=== PATIENT | female | born 1940 | race Caucasian/White ===

== ENCOUNTER 2024-10-01 08:27 | Inpatient (IN) ==
--- NOTE | 2024-09-28 14:17 | Anesthesiology Consultation ---
Date of Service September 28, 2024 Assessment & Plan (1) Encounter for pre-operative examination: - check CBC with diff STAT am DOS, BMP, coags, type and screen, EKG, CXR and BSG am DOS. - cardiology office note 04/18/24: "...6 month follow up...PAD on Xarelto and Plavix s/p arthrectomy and stenting right SFA...feeling well. Denies chest pain. Functional class II dyspnea, unchanged from baseline...continue current medications...carotid dopplers to assess for carotid stenosis..." - PAT placement secretary advised that Cat at Dr. Glover's office only had cardiology office note on patient and that per herself and Dr. Glover's vice president supply chain testing from [facility] would not be in time so therefore they were requesting we order testing for DOS. - Per inorganic chemist on 09/28/24 No known infectious disease contacts, current infectious disease symptoms in past 10 days or COVID positive test result in the past 30 days. Chart Review Chart Review: Acceptable Risk for Surgery (pending review of DOS testing) and Patient NOT seen in Pre Admission Testing History Surgery Operation Date: 10/01/24 09:45 Proposed Procedures p Right Groin Pseudoaneurysm Repair with Possible Interposition Graft - Everardo Glover MD Height/Weight Height: 5 ft 2 in Weight: 70.307 kg Allergies Allergy/AdvReac Type Severity Reaction Status Date / Time Penicillins Allergy Intermediate hives Verified 09/28/24 13:27 Sulfa (Sulfonamide Allergy Intermediate hives Verified 09/28/24 13:27 Antibiotics) roflumilast [From [facility]] AdvReac Mild upset Verified 09/28/24 13:28 stomach Medications Home Medications Medication Instructions Recorded Confirmed Last Taken Medical Marijuana 1 dose inhalation HS PRN Sleep 09/28/24 09/28/24 Unknown Mood Booster 200 mg PO HS 09/28/24 09/28/24 Unknown amlodipine 5 mg tablet 5 mg PO QAM 09/28/24 09/28/24 Unknown atorvastatin 40 mg tablet (Lipitor) 40 mg PO HS 09/28/24 09/28/24 Unknown calcium 600 mg (as 1 tab PO QAM 09/28/24 09/28/24 Unknown carbonate)-vitamin D3 5 mcg (200 unit) tablet clopidogrel 75 mg tablet (Plavix) 75 mg PO QAM 09/28/24 09/28/24 Unknown cyclosporine 0.05 % eye drops 1 drp ophthalmic (eye) Q12H 09/28/24 09/28/24 Unknown febuxostat 40 mg tablet (Uloric) 40 mg PO QAM 09/28/24 09/28/24 Unknown fluticasone furoate 100 1 inh inhalation DAILY 09/28/24 09/28/24 Unknown mcg/actuation blister powder for inhalation (Arnuity Ellipta) gabapentin 300 mg capsule 300 mg PO BID 09/28/24 09/28/24 Unknown hydrochlorothiazide 25 mg tablet 25 mg PO QAM 09/28/24 09/28/24 Unknown levothyroxine 50 mcg tablet 50 mcg PO QAM 09/28/24 09/28/24 Unknown (Synthroid) lisinopril 40 mg tablet 40 mg PO QAM 09/28/24 09/28/24 Unknown melatonin 5 mg tablet 5 mg PO HS 09/28/24 09/28/24 Unknown rivaroxaban 2.5 mg tablet (Xarelto) 2.5 mg PO BID 09/28/24 09/28/24 Unknown trazodone 100 mg tablet 200 mg PO HS 09/28/24 09/28/24 Unknown vibegron 75 mg tablet (Gemtesa) 75 mg PO QAM 09/28/24 09/28/24 Unknown Past Medical History Medical History Anemia Arthritis Asthma "only has daily inhaler">controlled Brain aneurysm 37 years ago>cont. to have aphasia (clamped at [facility]) Cardiac murmur Dr. Diaz cards Chronic obstructive pulmonary disease Diabetes mellitus, type 2 diet controlled (no meds "my choice") Dry eye syndrome GERD (gastroesophageal reflux disease) Hearing deficit [place] History of anxiety History of chronic lymphocytic leukemia no treatment Hx of gout Hyperlipidemia Hypertension Hypothyroidism Insomnia Medical marijuana use Mixed stress and urge urinary incontinence Panic attacks follows with pysch>every week Peripheral neuropathy PTSD (post-traumatic stress disorder) PVD (peripheral vascular disease) Past Family History Family History Other No family history of adverse response to anesthesia Past Surgical History Surgical History H/O breast biopsy benign H/O foot surgery needle removed from foot H/O vascular surgery 4 total stents/1 balloon in legs (done by Dr. Quinn Diaz). last done 08/29/24 at [facility] History of amputation right first 3 toes History of ankle surgery right/left History of appendectomy History of cataract surgery right/left History of cholecystectomy History of colonoscopy History of esophagogastroduodenoscopy (EGD) History of hysterectomy History of tonsillectomy History of tooth extraction History of total knee replacement right/left Social History Smoking Status: Former smoker Do You Dip or Chew Tobacco: No Smoking End Date: 2017 Hx Alcohol Use: No substance use type: does not use Testing Other Testing Carotid doppler 07/31/24 50-69% stenosis left ICA < 50% stenosis right ICA
--- NOTE | 2024-10-01 07:46 | History & Physical Report ---
Date of Service October 01, 2024 History of Present Illness Primary Care Provider: Berry Garcia Name: ELIGIO BASS Patient Number: [id number] : 1940 Date of Service: 09/24/2024 Chief Complaint: _New patient consultation for right groin pseudoaneurysm HPI: _Ms. Bass is an elderly female who presents to Dr. Glover's vascular clinic as a new patient regarding a right groin pseudoaneurysm. Patient states that she underwent an angiogram with intervention almost [address] Diaz[address] Postoperatively she was feeling okay, but felt that there was a lump in her right groin. She feels that this has increased in size somewhat over the past 1 to 2 weeks, and it is uncomfortable for her at the groin. She denies any significant ecchymosis or swelling of the right leg. She does admit some pretty significant low back pain in her spine which radiates to her buttocks bilaterally. She is she has had back pain like this before, and she is not sure what aggravated this. She denies headache, fever, chest pain, short of breath, bone pain, nausea, vomiting, resting, claudication, nonhealing wounds or ulcers, other complaints. She has had multiple angiogram procedures in her bilateral lower extremities in the past, but these records are not available for review today. Review of systems: A total of 14 systems were reviewed and are negative aside from what is related in her HPI Imaging: Patient did apparently have an ultrasound image performed of the right groin which indicated 3.9 cm pseudoaneurysm with a 0.9 cm neck. Unfortunately the report and the imaging are not available for review today as these were not sent to us. Emotional Assessment (PHQ-2) (Data Documented on:09/24/2024 12:44) [place] down or depressed over last 2 weeks? 0 - Not at All Little interest in doing things? 0 - Not at All PHQ-2 Score: 0 - Emotional health assessment NEGATIVE Current Home Meds: (Last Updated 09/24 12:59) amLODIPine (amLODIPine 5 mg oral tablet) 5 mg PO Daily atorvastatin (atorvastatin 40 mg oral tablet) 40 mg PO Daily clopidogrel (Plavix 75 mg oral tablet) 75 mg PO Daily cycloSPORINE ophthalmic (Restasis 0.05% ophthalmic emulsion) 1 drop both eyes q12h febuxostat (Uloric 40 mg oral tablet) 40 mg PO Daily fluticasone (Arnuity Ellipta 100 mcg inhalation powder) 1 puff inhaled Daily gabapentin (gabapentin 300 mg oral capsule) 300 mg PO bid hydroCHLOROthiazide (hydroCHLOROthiazide 25 mg oral tablet) 25 mg PO Daily levothyroxine 50 mcg PO Daily lisinopril (lisinopril 40 mg oral tablet) 40 mg PO Daily melatonin 5 mg PO qhs rivaroxaban (Xarelto 2.5 mg oral tablet) 2.5 mg PO bid traZODone (traZODone 100 mg oral tablet) 100 mg PO qhs unknown medication (L Theanine) 200 mg PO qhs vibegron (Gemtesa) 75 mg PO Daily Allergies and Sensitivities: sulfa drugs(Hives) penicillin(hives) Past Medical History: Problems: Pseudoaneurysm of femoral artery Peripheral arterial disease Hypertension Neuropathy Anxiety Hypothyroidism Hypercholesterolemia COPD Brain aneurysm CKD Surgical history: Positive for tonsillectomy, cholecystectomy, appendectomy, hysterectomy, multiple arteriography with intervention Family history: Coronary disease, hypertension, diabetes. Social history: Patient is a previous smoker, having smoked 1 pack a day and quit in 2018. She denies any alcohol or illicit drug use. OBJECTIVE Vitals: Last Updated 09/24/24 12:44 Date Temp BP Location Pulse RR SpO2 Pain 09/24/24 130/60 Right Arm 68 18 94 10 Vital Signs are the last 3 documented. No Orthostatic Data Available Height and Weight: Last Updated 09/24/24 12:44 Date BMI Wt(kg) Wt(lb) Method Ht(cm) (ft-in) Method 09/24/24 71.1 156 Standing Scale Heights and Weights are the last 3 documented. Physical Exam Constitutional: In general patient is a healthy appearing for age well-nourished well-developed elderly female in no distress. She is alert and oriented without any focal deficits. She is somewhat anxious and tearful. Her carotids do not demonstrate a bruit. Her heart is regular, lungs are clear but decreased throughout. Abdomen is soft and nontender with normoactive bowel sounds in all 4 quadrants. Brachial radial and femoral pulses are +3. Lower extremity distal pulses are +2 in the right, +1 on the left. She is surgical absence of her toes 1 through 3 on the right. Her right groin proximal to her healed puncture site it does demonstrate a palpable pulsatile mass which measures approximately 4 cm in diameter. It is mildly tender. There is no erythema, or ecchymosis present. ASSESSMENT: _ PLAN: _ 1 ) _right groin pseudoaneurysm Patient does have a right groin pseudoaneurysm measuring approximately 4 cm in diameter, with a neck measuring approximately 1 cm in diameter. Due to the size of the neck, it is unlikely that this will will resolve without surgical intervention. Dr. Glover also saw the patient today, and recommends that patient undergo open surgical repair of the right groin pseudoaneurysm with possible interposition graft if necessary. The procedure risks benefits and alternatives were discussed with the patient by myself at Dr. Glover's request. Patient expresses understanding and agreement to proceed. She is advised to call with any questions or concerns. She is agreeable this plan. Her daughter was also present today as well. Thank you for letting us participate in the care of this patient. I have personally spent_49__ minutes performing [id number] and [id number]-[id number]-face activities on this date of service.Time does not include separately reported services. Activities Include: x__ review of the medical record x__ obtaining a history _x_ physical exam/evaluation __ review labs _x_ review radiology reports _x_ counseling/educating patient/family/caregiver __ discussion/referral to other healthcare professional _x_ documenting care in the medical record __ independent interpretation of results _x_ communication of results to patient/family/caregiver _x_ coordination of care Signature Line Electronic Signature on File CC: Quinn Diaz MD [address] [facility] [address] [place] [id number] * Electronically Reviewed/Signed by: Ro Arias PA-C Author Signature Dt/Tm:09/24/2024 04:20 PM [facility] [place], [address] [place] [id number] Result Type: HVI Outpt Note Date of Service: September 24, 2024 16:05 EDT Authorization Status: Final Author or Import Date: SHERI Arias Lynn on September 24, 2024 16:20 EDT Verified By: SHERI Arias Lynn on September 24, 2024 16:20 EDT Encounter info: [id number], [id number], Clinic, 09/24/2024 - 09/24/2024 Allergies Allergy/AdvReac Type Severity Reaction Status Date / Time Penicillins Allergy Intermediate hives Verified 09/28/24 13:27 Sulfa (Sulfonamide Allergy Intermediate hives Verified 09/28/24 13:27 Antibiotics) roflumilast [From [facility]] AdvReac Mild upset Verified 09/28/24 13:28 stomach Home Medications Medication Instructions Recorded Confirmed Type Medical Marijuana 1 dose inhalation HS PRN Sleep 09/28/24 09/28/24 History Mood Booster 200 mg PO HS 09/28/24 09/28/24 History amlodipine 5 mg tablet 5 mg PO QAM 09/28/24 09/28/24 History atorvastatin 40 mg tablet (Lipitor) 40 mg PO HS 09/28/24 09/28/24 History calcium 600 mg (as 1 tab PO QAM 09/28/24 09/28/24 History carbonate)-vitamin D3 5 mcg (200 unit) tablet clopidogrel 75 mg tablet (Plavix) 75 mg PO QAM 09/28/24 09/28/24 History cyclosporine 0.05 % eye drops 1 drp ophthalmic (eye) Q12H 09/28/24 09/28/24 History febuxostat 40 mg tablet (Uloric) 40 mg PO QAM 09/28/24 09/28/24 History fluticasone furoate 100 1 inh inhalation DAILY 09/28/24 09/28/24 History mcg/actuation blister powder for inhalation (Arnuity Ellipta) gabapentin 300 mg capsule 300 mg PO BID 09/28/24 09/28/24 History hydrochlorothiazide 25 mg tablet 25 mg PO QAM 09/28/24 09/28/24 History levothyroxine 50 mcg tablet 50 mcg PO QAM 09/28/24 09/28/24 History (Synthroid) lisinopril 40 mg tablet 40 mg PO QAM 09/28/24 09/28/24 History melatonin 5 mg tablet 5 mg PO HS 09/28/24 09/28/24 History rivaroxaban 2.5 mg tablet (Xarelto) 2.5 mg PO BID 09/28/24 09/28/24 History trazodone 100 mg tablet 200 mg PO HS 09/28/24 09/28/24 History vibegron 75 mg tablet (Gemtesa) 75 mg PO QAM 09/28/24 09/28/24 History Past Med/Surg History Problem List (Updated 09/28/24 @ 14:14 by Roxann Doll PA-C) Encounter for pre-operative examination Medical History Anemia Arthritis Asthma "only has daily inhaler">controlled Brain aneurysm 37 years ago>cont. to have aphasia (clamped at [facility]) Cardiac murmur Dr. Diaz cards Chronic obstructive pulmonary disease Diabetes mellitus, type 2 diet controlled (no meds "my choice") Dry eye syndrome GERD (gastroesophageal reflux disease) Hearing deficit [place] History of anxiety History of chronic lymphocytic leukemia no treatment Hx of gout Hyperlipidemia Hypertension Hypothyroidism Insomnia Medical marijuana use Mixed stress and urge urinary incontinence Panic attacks follows with pysch>every week Peripheral neuropathy PTSD (post-traumatic stress disorder) PVD (peripheral vascular disease) Surgical History H/O breast biopsy benign H/O foot surgery needle removed from foot H/O vascular surgery 4 total stents/1 balloon in legs (done by Dr. Quinn Diaz). last done 08/29/24 at [facility] History of amputation right first 3 toes History of ankle surgery right/left History of appendectomy History of cataract surgery right/left History of cholecystectomy History of colonoscopy History of esophagogastroduodenoscopy (EGD) History of hysterectomy History of tonsillectomy History of tooth extraction History of total knee replacement right/left Family History Other No family history of adverse response to anesthesia Social History Smoking Status: Former smoker Tobacco Type: Cigarettes Smoking End Date: 2017; Second Hand Exposure: No; Do You Dip or Chew Tobacco: No; Hx Alcohol Use: No Preferred Language: Pashto 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
--- NOTE | 2024-10-01 08:58 | History & Physical Bridge Note ---
Date of Service October 01, 2024 History & Physical Bridge Note I have examined the patient, reviewed the History & Physical and in the interval since the performance of the History & Physical I have noted the following changes of clinical significance: no changes noted
--- OUTSIDE RECORDS SUMMARY | 2024-10-01 09:00 | External Medical Summary | Continuity of Care Document ---
Author Name Unknown Organization [facility] [address] [place], [place] [id number] [id number] Date(s): 09/24/24 - 09/24/24 [facility] [address], [address] [place] [phone] Encounter Diagnosis Pseudoaneurysm of femoral artery(Discharge Diagnosis) - 09/24/24 Discharge Disposition: Home or Self Care Attending Physician: MD Glover Eugene J Referring Physician: MD Emily, Quinn Dias Encounter Type: Clinic Allergies, Adverse Reactions, Alerts Substance Criticality Severity Reaction Reaction Severity Status penicillin hives Active sulfa drugs Hives Active Assessment and Plan Extracted from: Title:Clinical Document Author:SHERI Arias Lynn Date:09/24/24 [facility] OUTPATIENT NOTE Name: ELIGIO BASS Patient Number: [id number] : 1940 Date of Service: 09/24/2024 Chief Complaint: _New patient consultation for right groin pseudoaneurysm HPI: _Ms. Bass is an elderly female who presents to Dr. Glover's vascular clinic as a new patient regarding a right groin pseudoaneurysm. Patient states that she underwent an angiogram with intervention almost [address] Diaz. Postoperatively she was feeling okay, but felt that there was a lump in her right groin. She feels that this has increased in size somewhat over the past 1 to 2 weeks, and it is uncomfortable for her at the groin. She denies any significant ecchymosis or swelling of the right leg. She does admit some pretty significant low back pain in her spine which radiates to her buttocks bilaterally. She is she has had back pain like this before, and she is not sure what aggravated this. She denies headache, fever, chest pain, short of breath, bone pain, nausea, vomiting, resting, claudication, nonhealing wounds or ulcers, other complaints. She has had multiple angiogram procedures in her bilateral lower extremities in the past, but these records are not available for review today. Review of systems: A total of 14 systems were reviewed and are negative aside from what is related in her HPI Imaging: Patient did apparently have an ultrasound image performed of the right groin which indicated 3.9 cm pseudoaneurysm with a 0.9 cm neck. Unfortunately the report and the imaging are not available for review today as these were not sent to us. Emotional Assessment (PHQ-2) (Data Documented on:09/24/2024 12:44) Rickman down or depressed over last 2 weeks? 0 - Not at All Little interest in doing things? 0 - Not at All PHQ-2 Score: 0 - Emotional health assessment NEGATIVE Current Home Meds: (Last Updated 09/24 12:59) amLODIPine (amLODIPine 5 mg oral tablet) 5 mg PO Daily atorvastatin (atorvastatin 40 mg oral tablet) 40 mg PO Daily clopidogrel (Plavix 75 mg oral tablet) 75 mg PO Daily cycloSPORINE ophthalmic (Restasis 0.05% ophthalmic emulsion) 1 drop both eyes q12h febuxostat (Uloric 40 mg oral tablet) 40 mg PO Daily fluticasone (Arnuity Ellipta 100 mcg inhalation powder) 1 puff inhaled Daily gabapentin (gabapentin 300 mg oral capsule) 300 mg PO bid hydroCHLOROthiazide (hydroCHLOROthiazide 25 mg oral tablet) 25 mg PO Daily levothyroxine 50 mcg PO Daily lisinopril (lisinopril 40 mg oral tablet) 40 mg PO Daily melatonin 5 mg PO qhs rivaroxaban (Xarelto 2.5 mg oral tablet) 2.5 mg PO bid traZODone (traZODone 100 mg oral tablet) 100 mg PO qhs unknown medication (L Theanine) 200 mg PO qhs vibegron (Gemtesa) 75 mg PO Daily Allergies and Sensitivities: sulfa drugs(Hives) penicillin(hives) Past Medical History: Problems: Pseudoaneurysm of femoral artery Peripheral arterial disease Hypertension Neuropathy Anxiety Hypothyroidism Hypercholesterolemia COPD Brain aneurysm CKD Surgical history: Positive for tonsillectomy, cholecystectomy, appendectomy, hysterectomy, multiple arteriography with intervention Family history: Coronary disease, hypertension, diabetes. Social history: Patient is a previous smoker, having smoked 1 pack a day and quit in 2018. She denies any alcohol or illicit drug use. OBJECTIVE Vitals: Last Updated 09/24/24 12:44 Date Temp BP Location Pulse RR SpO2 Pain 09/24/24 130/60 Right Arm 68 18 94 10 Vital Signs are the last 3 documented. No Orthostatic Data Available Height and Weight: Last Updated 09/24/24 12:44 Date BMI Wt(kg) Wt(lb) Method Ht(cm) (ft-in) Method 09/24/24 71.1 156 Standing Scale Heights and Weights are the last 3 documented. Physical Exam Constitutional: In general patient is a healthy appearing for age well-nourished well-developed elderly female in no distress. She is alert and oriented without any focal deficits. She is somewhat anxious and tearful. Her carotids do not demonstrate a bruit. Her heart is regular, lungs are clear but decreased throughout. Abdomen is soft and nontender with normoactive bowel sounds in all 4 quadrants. Brachial radial and femoral pulses are +3. Lower extremity distal pulses are +2 in the right, +1 on the left. She is surgical absence of her toes 1 through 3 on the right. Her right groin proximal to her healed puncture site it does demonstrate a palpable pulsatile mass which measures approximately 4 cm in diameter. It is mildly tender. There is no erythema, or ecchymosis present. ASSESSMENT: _ PLAN: _ 1 ) _right groin pseudoaneurysm Patient does have a right groin pseudoaneurysm measuring approximately 4 cm in diameter, with a neck measuring approximately 1 cm in diameter. Due to the size of the neck, it is unlikely that this will will resolve without surgical intervention. Dr. Glover also saw the patient today, and recommends that patient undergo open surgical repair of the right groin pseudoaneurysm with possible interposition graft if necessary. The procedure risks benefits and alternatives were discussed with the patient by myself at Dr. Glover's request. Patient expresses understanding and agreement to proceed. She is advised to call with any questions or concerns. She is agreeable this plan. Her daughter was also present today as well. Thank you for letting us participate in the care of this patient. I have personally spent _49__ minutes performing [id number]-pc-[id number] and yiy-dath-qg-face activities on this date of service. Time does not include separately reported services. Activities Include: x__ review of the medical record x__ obtaining a history _x_ physical exam/evaluation __ review labs _x_ review radiology reports _x_ counseling/educating patient/family/caregiver __ discussion/referral to other healthcare professional _x_ documenting care in the medical record __ independent interpretation of results _x_ communication of results to patient/family/caregiver _x_ coordination of care Medications amLODIPine 5 mg oral tablet Start: 09/24/24 12:54:00 PM EDT, 1 tab, PO, Daily Start Date: 09/24/24 Status: Ordered Repeat number: 1 Arnuity Ellipta 100 mcg inhalation powder Start: 09/24/24 12:54:00 PM EDT, 1 puff, inhaled, Daily, Disp# 1 each Start Date: 09/24/24 Stop Date: 10/24/24 Status: Ordered Quantity: 1.0 Unit: each Repeat number: 1 atorvastatin 40 mg oral tablet Start: 09/24/24 12:47:00 PM EDT, 1 tab, PO, Daily Start Date: 09/24/24 Status: Ordered Repeat number: 1 gabapentin 300 mg oral capsule Start: 09/24/24 12:48:00 PM EDT, 1 cap, PO, bid Start Date: 09/24/24 Status: Ordered Repeat number: 1 Gemtesa Start: 09/24/24 12:52:00 PM EDT, 75 mg =, PO, Daily Start Date: 09/24/24 Status: Ordered Repeat number: 1 hydroCHLOROthiazide 25 mg oral tablet Start: 09/24/24 12:51:00 PM EDT, 1 tab, PO, Daily Start Date: 09/24/24 Status: Ordered Repeat number: 1 L Theanine Start: 09/24/24 12:51:00 PM EDT, L Theanine, 200 = mg, PO, qhs Start Date: 09/24/24 Status: Ordered Repeat number: 1 levothyroxine Start: 09/24/24 12:50:00 PM EDT, 50 mcg =, PO, Daily Start Date: 09/24/24 Status: Ordered Repeat number: 1 lisinopril 40 mg oral tablet Start: 09/24/24 12:47:00 PM EDT, 1 tab, PO, Daily Start Date: 09/24/24 Status: Ordered Repeat number: 1 melatonin Start: 09/24/24 12:52:00 PM EDT, 5 mg =, PO, qhs Start Date: 09/24/24 Status: Ordered Repeat number: 1 Plavix 75 mg oral tablet Start: 09/24/24 12:50:00 PM EDT, 1 tab, PO, Daily Start Date: 09/24/24 Status: Ordered Repeat number: 1 Restasis 0.05% ophthalmic emulsion Start: 09/24/24 12:52:00 PM EDT, 1 drop, both eyes, q12h Start Date: 09/24/24 Status: Ordered Repeat number: 1 traZODone 100 mg oral tablet Start: 09/24/24 12:54:00 PM EDT, 1 tab, PO, qhs Start Date: 09/24/24 Status: Ordered Repeat number: 1 Uloric 40 mg oral tablet Start: 09/24/24 12:48:00 PM EDT, 1 tab, PO, Daily Start Date: 09/24/24 Status: Ordered Repeat number: 1 Xarelto 2.5 mg oral tablet Start: 09/24/24 12:50:00 PM EDT, 1 tab, PO, bid Start Date: 09/24/24 Status: Ordered Repeat number: 1 Mental Status 09/24/24 Barriers to Learning one year None evide nt Mandatory Health Literacy Documentation Yes Health Literacy Communication Barriers N ever Primary Language Dominican Problem List Condition Confirmation Course Effective Dates Status H ealth Status Informant Pseudoaneurysm of femoral artery Confirmed Active Diagnosis Diagnosis Type Effective Dates Health Status Clinical Service Informant Pseudoaneurysm of femoral artery Discharge Diagnosis 09/24/24 Vital Signs Most recent to oldest [Reference Range]: 1 Patient Weight 71.1 kg (09/24/24 12:44 PM) Heart Rate 68 bpm (09/24/24 12:44 PM) Respiratory Rate 18 br/min (09/24/24 12:44 PM) Blood Pressure 130/60mmHg (09/24/24 12:44 PM) Cuff Pulse Pressure 70 mmHg (09/24/24 12:44 PM) BP Location # 1 Right Arm (09/24/24 12:44 PM) Social History Social History Type Response Smoking Status Former Smoker, quit > 1 yr Sex Sex Representation Female (finding) [facility] Outpt Note * SHERI Arias Lynn: PERFORM Event Display: [facility] Outpt Note Authored Date: [id number] [facility] OUTPATIENT NOTE Name: ELIGIO BASS Patient Number: [id number] : 1940 Date of Service: 09/24/2024 Chief Complaint: _New patient consultation for right groin pseudoaneurysm HPI: _Ms. Bass is an elderly female who presents to Dr. Glover's vascular clinic as a new patient regarding a right groin pseudoaneurysm. Patient states that she underwent an angiogram with intervention almost [address] Diaz. Postoperatively she was feeling okay, but felt that therewas a lump in her right groin. She feels that this has increased in size somewhat over the past 1 to 2 weeks, and it is uncomfortable for her at the groin. She denies any significant ecchymosis or swelling of the right leg. She does admit some pretty significant low back pain in her spine which radiates to her buttocks bilaterally. She is she has had back pain like this before, and she is not sure what aggravated this. She denies headache, fever, chest pain, short of breath, bone pain, nausea, vomiting, resting, claudication, nonhealing wounds or ulcers, other complaints. She has had multiple angiogram procedures in her bilateral lower extremities in the past, but theserecords are not available for review today. Review of systems: A total of 14 systems were reviewed and are negative aside from what is related in her HPI Imaging: Patient did apparently have an ultrasound image performed of the right groin which indicated 3.9 cm pseudoaneurysm with a 0.9 cm neck. Unfortunately the report and the imaging are not available for review today as these were not sent to us. Emotional Assessment (PHQ-2) (Data Documented on:09/24/2024 12:44) Rickman down or depressed over last 2 weeks? 0 - Not at All Little interest in doing things? 0 - Not at All PHQ-2 Score: 0 - Emotional health assessment NEGATIVE Current Home Meds: (Last Updated 09/24 12:59) amLODIPine (amLODIPine 5 mg oral tablet) 5 mg PO Daily atorvastatin (atorvastatin 40 mg oral tablet) 40 mg PO Daily clopidogrel (Plavix 75 mg oral tablet) 75 mg PO Daily cycloSPORINE ophthalmic (Restasis 0.05% ophthalmic emulsion) 1 drop both eyes q12h febuxostat (Uloric 40 mg oral tablet) 40 mg PO Daily fluticasone (Arnuity Ellipta 100 mcg inhalation powder) 1 puff inhaled Daily gabapentin (gabapentin 300 mg oral capsule) 300 mg PO bid hydroCHLOROthiazide (hydroCHLOROthiazide 25 mg oral tablet) 25 mg PO Daily levothyroxine 50 mcg PO Daily lisinopril (lisinopril 40 mg oral tablet) 40 mg PO Daily melatonin 5 mg PO qhs rivaroxaban (Xarelto 2.5 mg oral tablet) 2.5 mg PO bid traZODone (traZODone 100 mg oral tablet) 100 mg PO qhs unknown medication (L Theanine) 200 mg PO qhs vibegron (Gemtesa) 75 mg PO Daily Allergies and Sensitivities: sulfa drugs(Hives) penicillin(hives) Past Medical History: Problems: Pseudoaneurysm of femoral artery Peripheral arterial disease Hypertension Neuropathy Anxiety Hypothyroidism Hypercholesterolemia COPD Brain aneurysm CKD Surgical history: Positive for tonsillectomy, cholecystectomy, appendectomy, hysterectomy, multiplearteriography with intervention Family history: Coronary disease, hypertension, diabetes. Social history: Patient is a previous smoker, having smoked 1 pack a day and quit in 2018. She denies any alcohol or illicit drug use. OBJECTIVE Vitals: Last Updated 09/24/24 12:44 Date Temp BP Location Pulse RR SpO2 Pain 09/24/24 130/60 Right Arm 68 18 94 10 Vital Signs are the last 3 documented. No Orthostatic Data Available Height and Weight: Last Updated 09/24/24 12:44 Date BMI Wt(kg) Wt(lb) Method Ht(cm) (ft-in) Method 09/24/24 71.1 156 Standing Scale Heights and Weights are the last 3 documented. Physical Exam Constitutional: In general patient is a healthy appearing for age well-nourished well-developed elderly female in no distress. She is alert and oriented without any focal deficits. She is somewhat anxious and tearful. Her carotids do not demonstrate a bruit. Her heart is regular, lungs are clear but decreased throughout. Abdomen is soft and nontender with normoactive bowel sounds in all 4 quadrants. Brachial radial and femoral pulses are +3. Lower extremity distal pulses are +2 in the right, +1on the left. She is surgical absence of her toes 1 through 3 on the right. Her right groin proximalto her healed puncture site it does demonstrate a palpable pulsatile mass which measures approximately 4 cm in diameter. It is mildly tender. There is no erythema, or ecchymosis present. ASSESSMENT: _ PLAN: _ 1 ) _right groin pseudoaneurysm Patient does have a right groin pseudoaneurysm measuring approximately 4 cm in diameter, with a neck measuring approximately 1 cm in diameter. Due to the size of the neck, it is unlikely that this will will resolve without surgical intervention. Dr. Glover also saw the patient today, and recommendsthat patient undergo open surgical repair of the right groin pseudoaneurysm with possible interposition graft if necessary. The procedure risks benefits and alternatives were discussed with the patient by myself at Dr. Glover's request. Patient expresses understanding and agreement to proceed. She is advised to call with any questions or concerns. She is agreeable this plan. Her daughter was also present today as well. Thank you for letting us participate in the care of this patient. I have personally spent _49__ minutes performing [id number]-yyok and mnn-sigz-zh-face activities on this date of service. Time does not include separately reported services. Activities Include: x__ review of the medical record x__ obtaining a history _x_ physical exam/evaluation __ review labs _x_ review radiology reports _x_ counseling/educating patient/family/caregiver __ discussion/referral to other healthcare professional _x_ documenting care in the medical record __ independent interpretation of results _x_ communication of results to patient/family/caregiver _x_ coordination of care Electronic Signature on File CC: Quinn Diaz MD [id number] [address] * Electronically Reviewed/Signed by: Ro Arias PA-C Author Signature Dt/Tm:09/24/2024 04:20 PM [facility] [place] [address] [facility] [address] [place] 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
[2024-10-01 09:01] LABS: Basophils # (auto) 0.07 K/uL (0.00-0.20); Basophils % (auto) 0.7 %; Eosinophils # (auto) 0.26 K/uL (0.00-0.50); Eosinophils % (auto) 2.6 %; Hemoglobin 10.3 g/dl (12.0-16.0); Immature Granulocytes # (auto) 0.03 K/uL (0.01-0.20); Immature Granulocytes % (auto) 0.3 %; Lymphocytes % (auto) 49.3 %; Mean Corpuscular Hgb Conc 31.2 g/dL (32.0-36.0); Mean Corpuscular Volume 89.7 fL (80.0-100.0); Mean Platelet Volume 10.4 fL (9.4-12.4); Monocytes # (auto) 0.57 K/uL (0.11-0.59); Monocytes % (auto) 5.7 %; Neutrophils % (auto) 41.4 %; Platelet Count 323 K/uL (130-400); RDW Coefficient of Variation 14.6 % (11.5-14.5); RDW Standard Deviation 47.9 fL (36.4-46.3); Red Blood Count 3.68 M/uL (4.20-5.40); White Blood Count 9.93 K/ul (4.8-10.8)
[2024-10-01 09:14] LABS: BUN Creatinine Ratio 17.7 (10-20); Calcium 9.7 mg/dl (8.6-10.3); Creatinine Clr Calc Pharmacy 27.3 ml/min; Potassium 4.4 mmol/L (3.5-5.1)
--- NOTE | 2024-10-01 09:18 | XRay Report ---
XR chest 2V PA/lateral CLINICAL HISTORY: preop COMPARISON STUDY: None FINDINGS: There is mild cardiomegaly without pulmonary vascular congestion. No effusion or consolidat ion. IMPRESSION: No acute findings. ACT 112: Negative or not required by law. Electronically signed by: Kwesi Forman M.D. 10/01/2024 9:17 AM
[2024-10-01 09:28] LABS: Partial Thromboplastin Ratio 0.9; Partial Thromboplastin Time 25 Seconds (21-31); Prothrombin Time 10.4 Seconds (9.0-12.0)
[2024-10-01] MEDS: SODIUM CHLORIDE 0.9% 1,000 ML IV SCH (09:39)
[2024-10-01] MEDS ORDERED: ePHEDrine sulfate 50 MG/ML AMP IV PRN (09:45)
[2024-10-01] MEDS ORDERED: ONDANSETRON INJ 2 MG/ML 2 ML VIAL IV PRN ×2 (09:45→12:21)
[2024-10-01] MEDS ORDERED: ATROPINE SULFATE 0.1 MG/ML 10ML SYR IV PRN (09:45)
[2024-10-01] MEDS ORDERED: LIDOCAINE 2% 2 ML VIAL/AMP(20MG/ML) INFIL ONE (10:25)
[2024-10-01] MEDS ORDERED: fentaNYL citrate PF 100 MCG/2 ML VIAL ONE ×2 (10:25→11:30)
[2024-10-01] MEDS ORDERED: PROPOFOL IV EMULSION 10 MG/ML 20 ML VIAL IV ONE (10:25)
[2024-10-01] MEDS ORDERED: ROCURONIUM BROMIDE 10 MG/ML 5 ML VIAL IV ONE (10:25)
[2024-10-01] MEDS ORDERED: ONDANSETRON INJ 2 MG/ML 2 ML VIAL ONE (10:25)
[2024-10-01] MEDS ORDERED: DEXAMETHASONE SOD INJ 4 MG/ML VIAL ONE (10:29)
[2024-10-01] MEDS: CLINDAMYCIN/D5W 900 MG/50 ML BAG IV SCH (10:40)
[2024-10-01] MEDS ORDERED: SUGAMMADEX SODIUM 200 MG/2 ML VIAL IV ONE (11:10)
[2024-10-01] MEDS ORDERED: ePHEDrine sulfate 50 MG/5 ML SYR ONE (11:11)
[2024-10-01] MEDS ORDERED: PHENYLEPHRINE HCL 10 MG/ML VIAL ONE (11:11)
[2024-10-01] MEDS ORDERED: VASOPRESSIN 20 UNIT/ML VIAL ONE (11:14)
--- NOTE | 2024-10-01 11:17 | Electrocardiogram Report ---
Test Reason : Blood Pressure : */* mmHG Vent. Rate : 63 BPM Atrial Rate : 63 BPM P-R Int : 164 ms QRS Dur : 68 ms QT Int : 408 ms P-R-T Axes : 98 -10 38 degrees QTcB Int : 417 ms Sinus rhythm with Premature atrial complexes Otherwise normal ECG No previous ECGs available Confirmed by Cain Deras ([id number]) on 10/01/2024 11:16:33 AM Referred By: Everardo Glover Confirmed By: Cain Deras
[2024-10-01] MEDS: ceFAZolin 330 MG/ML 1 GM VIAL ONE (11:25)
[2024-10-01] MEDS: GELATIN SPONGE SZ 100 ONE (12:16)
[2024-10-01] MEDS: HEPARIN (PORCINE) 1000 UNIT/ML 10 ML (CATH LAB USE ONLY) ONE (12:17)
[2024-10-01] MEDS: THROMBIN FOR SOLN 20000 UNIT KIT ONE (12:26)
--- NOTE | 2024-10-01 12:33 | Post Operative Brief Note ---
Immediate Post Op Note Date of Surgery October 01, 2024 Pre & Post Diagnosis Operation Date: 10/01/24 09:45 Pre-Op Diagnosis: Right Groin Pseudoaneurysm Post-Op Diagnosis: Right Groin Pseudoaneurysm I identified the patient and participated in the time-out.: Yes Procedure Operation Date: 10/01/24 09:45 Actual Procedures p Right Groin Pseudoaneurysm Repair with Possible Interposition Graft(Right) - Everardo Glover MD Surgeon Everardo Glover MD Conference Planning Manager MD Lola RoperMinarchdeysi,PAC Estimated Blood Loss 50 Findings Consistent with Post-Op Diagnosis Drains Caba Catheter Anesthesia Type General Complications none Disposition Accompanied Patient To Recovery: No Disposition: Recovery Room
--- NOTE | 2024-10-01 13:20 | Operative Report ---
Post Operative Report Pre & Post Diagnosis Operation Date: 10/01/24 09:45 Pre-Op Diagnosis: Right Groin Pseudoaneurysm Post-Op Diagnosis: Right Groin Pseudoaneurysm I identified the patient and participated in the time-out.: Yes Procedure Operation Date: 10/01/24 09:45 Actual Procedures p Right Groin Pseudoaneurysm Repair (Right) - Everardo Glover MD Surgeon Everardo Glover MD Fiberglass Roving Winder MD Ari Roper,PAC Estimated Blood Loss 50 Findings Consistent with Post-Op Diagnosis Thrombosed pseudoaneurysm arising from R DIRECTOR PRIVATE with defect in anterior wall of DIRECTOR PRIVATE. DIRECTOR PRIVATE patent followign primary arterial repair Specimens None Anesthesia Type General Complications None Disposition Accompanied Patient To Recovery: No Indications This is an 84 year old female s/p cardiac catheterization with right DIRECTOR PRIVATE access who developed a large pseudoaneurysm following the procedure. On initial evaluation in clinic she was found to have a pulsatile mass in her right groin consistent with the pseudoaneurysm with a 0.8cm neck. The appearance of the pseudoaneurysm and large size was not amenable to conservative management. After discussion of the procedure, risks and benefits, patient elected to repair with repair of her right femoral artery pseudoaneurysm. Description of Procedure The patient was taken to the operating room and placed in the supine position. General endotracheal anesthesia was induced. The right groin and right leg were prepped and draped circumferentially in the usual sterile fashion. A longitudinal incision was made over the right DIRECTOR PRIVATE and pseudoaneurysm using a #15 blade scalpel. Dissection was carried down through subcutaneous tissue using electrocautery followed by Metzenbaum scissions. The inguinal ligament was identified and the DIRECTOR PRIVATE proximal to the pseudoaneurysm below. Proximal control was obtained. The pseudoaneurysm capsule was then partially dissected anteriorly and on both sides laterally. Control of the distal femoral/SFA below the pseudoaneurysm was then obtained. 6000U IV heparin was given. The Proximal DIRECTOR PRIVATE was clamped. The pseudoaneurysm capsule was then dissected and the pseudoaneurys m resected using a combination of electrocute, Metzenbaum scissors, and blunt dissection. The pseudoaneurysm appeared to be mostly thrombosed. There was no initial bleeding from the anterior wall of the DIRECTOR PRIVATE following removal. Our proximal DIRECTOR PRIVATE clamp was then removed. A small defect in the anterior wall of the DIRECTOR PRIVATE was noted. This was repaired primarily with a 5-0 Prolene. No further bleeding was identified. There was a pulse in the DIRECTOR PRIVATE proximal and distal to repair. Hemostasis was obtained. The wound was closed with running 2-0 Vicryl sutures followed by 3-0 running subcutaneous Vicryl sutures. The skin was closed with migel. Dr. Glover was present and scrubbed for the entire procedure. Ro Arias Pac assisted due to lack of resident availability and was necessary for positioning, draping, retraction, wound closure deep layers, subcutaneous tissue, and skin closure and was necessary for assisting with the case. I attest to the content of the Intraoperative Record and any orders documented therein. Any exceptions are noted below. Supervising Physician Co-Signing Physician Notes Everardo Glover MD
--- NOTE | 2024-10-01 13:22 | Anesthesiology Progress Note ---
Date of Service October 01, 2024 Anesthesia Post Procedure Vital Signs Vital Signs: Temp Pulse Resp BP Pulse Ox O2 Del Method 10/01/24 08:53 36.5 C 68 18 131/55 L 95 Room Air Pain Intensity Lower Back: Pain Intensity: 10 Transfer of Care Handoff Completed per policy Notes Mental Status: alert / awake / arousable and participated in evaluation Patient Amnestic to Procedure: Yes Nausea / Vomiting: adequately controlled Pain: adequately controlled Airway Patency, RR, SpO2: stable & adequate BP & HR: stable & adequate Hydration State: stable & adequate Anesthetic Complications: no major complications apparent and Pt Satisfied with anesthetic care
[2024-10-01] MEDS: fentaNYL citrate PF 100 MCG/2 ML VIAL IV PRN (13:24)
[2024-10-01] MEDS: HYDROmorphone INJ 1 MG/ML SYRINGE IV PRN (13:56)
[2024-10-01] MEDS: LACTATED RINGER'S 1,000 ML IV SCH (15:07)
[2024-10-01] MEDS: MoRPHine SULFATE 4 MG/ML 1 ML CARP\\VIAL IV PRN (15:40)
--- NOTE | 2024-10-01 15:48 | Critical Care Consultation ---
Date of Consultation October 01, 2024 Assessment & Plan (1) Pseudoaneurysm of femoral artery following procedure: Reason Critically Ill: Status post right femoral pseudoaneurysm repair PLAN: Neuro: Analgesia per vascular surgery Resp: Tolerating room air CV: Hypertension -Continue home meds GI/Nutrition: Regular diet Heme: Anemia NOS DVT prophylaxis: Patient ambulatory Endocrine: ICU hyperglycemia protocol Vascular access: Peripheral IVs Code Status: Full code Disposition: Critical care will sign off at this time (2) Hyperlipidemia: (3) Hypertension: (4) Hypothyroidism: History of Present Illness Reason for Consultation: Repair of right groin pseudoaneurysm, postop day 0 Attending Physician: Everardo Glover MD History of Present Illness Patient is an 83-year-old female who underwent repair of a right groin pseudoaneurysm after a angiogram approximately 6 weeks ago. Successful repair was completed in the operating room and the patient is mated to the ICU without any complaint at this time. Allergies Allergy/AdvReac Type Severity Reaction Status Date / Time Penicillins Allergy Intermediate hives Verified 10/01/24 08:54 Sulfa (Sulfonamide Allergy Intermediate hives Verified 10/01/24 08:54 Antibiotics) roflumilast [From Daliresp] AdvReac Mild upset Verified 10/01/24 08:54 stomach Home Medications Medication Instructions Recorded Confirmed Type Medical Marijuana 1 dose inhalation HS PRN Sleep 09/28/24 10/01/24 History Mood Booster 200 mg PO HS 09/28/24 10/01/24 History amlodipine 5 mg tablet 5 mg PO QAM 09/28/24 10/01/24 History atorvastatin 40 mg tablet (Lipitor) 40 mg PO HS 09/28/24 10/01/24 History calcium 600 mg (as 1 tab PO QAM 09/28/24 10/01/24 History carbonate)-vitamin D3 5 mcg (200 unit) tablet clopidogrel 75 mg tablet (Plavix) 75 mg PO QAM 09/28/24 10/01/24 History cyclosporine 0.05 % eye drops 1 drp ophthalmic (eye) Q12H 09/28/24 10/01/24 History febuxostat 40 mg tablet (Uloric) 40 mg PO QAM 09/28/24 10/01/24 History fluticasone furoate 100 1 inh inhalation DAILY 09/28/24 10/01/24 History mcg/actuation blister powder for inhalation (Arnuity Ellipta) gabapentin 300 mg capsule 300 mg PO BID 09/28/24 10/01/24 History hydrochlorothiazide 25 mg tablet 25 mg PO QAM 09/28/24 10/01/24 History levothyroxine 50 mcg tablet 50 mcg PO QAM 09/28/24 10/01/24 History (Synthroid) lisinopril 40 mg tablet 40 mg PO QAM 09/28/24 10/01/24 History melatonin 5 mg tablet 5 mg PO HS 09/28/24 10/01/24 History rivaroxaban 2.5 mg tablet (Xarelto) 2.5 mg PO BID 09/28/24 10/01/24 History trazodone 100 mg tablet 200 mg PO HS 09/28/24 10/01/24 History vibegron 75 mg tablet (Gemtesa) 75 mg PO QAM 09/28/24 10/01/24 History Patient History Medical History Anemia Arthritis Asthma "only has daily inhaler">controlled Brain aneurysm 37 years ago>cont. to have aphasia (clamped at [facility]) Cardiac murmur Dr. Diaz cards Chronic obstructive pulmonary disease Diabetes mellitus, type 2 diet controlled (no meds "my choice") Dry eye syndrome GERD (gastroesophageal reflux disease) Hearing deficit [place] History of anxiety History of chronic lymphocytic leukemia no treatment Hx of gout Hyperlipidemia Hypertension Hypothyroidism Insomnia Medical marijuana use Mixed stress and urge urinary incontinence Panic attacks follows with pysch>every week Peripheral neuropathy PTSD (post-traumatic stress disorder) PVD (peripheral vascular disease) Surgical History H/O breast biopsy benign H/O foot surgery needle removed from foot H/O vascular surgery 4 total stents/1 balloon in legs (done by Dr. Quinn Diaz). last done 08/29/24 at [facility] History of amputation right first 3 toes History of ankle surgery right/left History of appendectomy History of cataract surgery right/left History of cholecystectomy History of colonoscopy History of esophagogastroduodenoscopy (EGD) History of hysterectomy History of tonsillectomy History of tooth extraction History of total knee replacement right/left Family History Other No family history of adverse response to anesthesia Social History Smoking Status: Former smoker Tobacco Type: Cigarettes Smoking End Date: 2017; Second Hand Exposure: No; Do You Dip or Chew Tobacco: No; Hx Alcohol Use: No Preferred Language: [place] [employer] Required: No Beliefs That Will Affect Care: None Current Living Situation: Alone Feels Safe at Home: Yes Safety Concerns: Feels Safe At This Time Assistive Devices: Glasses, Hearing Aid - Bilateral and Walker Assistive Devices Comment: upper partial Physical Exam Physical Exam: General: Alert. nontoxic. Skin: Warm, dry, Head: Atraumatic Ears, nose, mouth and throat: airway patent Cardiovascular: Normal peripheral perfusion Respiratory: no respiratory distress Gastrointestinal: Non distended Musculoskeletal: No deformity, wound VAC in place in right groin Results & Data Results & Data Vital Signs (Past 12 Hours) Vital Signs Temp Pulse Pulse Resp BP BP Pulse Ox 10/01/24 15:06 81 17 97 10/01/24 15:00 10/01/24 15:00 10/01/24 14:50 36.8 C 86 18 105/63 96 10/01/24 14:25 36.5 C 87 15 119/58 L 94 10/01/24 14:15 83 12 121/55 L 96 10/01/24 14:05 88 22 144/89 H 98 10/01/24 13:55 87 13 133/62 95 10/01/24 13:45 88 17 104/52 L 95 10/01/24 13:35 93 H 18 127/62 96 10/01/24 13:25 85 22 123/55 L 97 10/01/24 13:17 36.4 C L 89 16 125/55 L 97 10/01/24 08:53 36.5 C 68 18 131/55 L 95 Pulse Ox O2 Del Method O2 Del Method O2 Flow Rate O2 Flow Rate 10/01/24 15:06 10/01/24 15:00 Nasal Cannula 2 10/01/24 15:00 97 Nasal Cannula 2 10/01/24 14:50 Nasal Cannula 2 10/01/24 14:25 Nasal Cannula 4 10/01/24 14:15 Nasal Cannula 4 10/01/24 14:05 Nasal Cannula 4 10/01/24 13:55 Nasal Cannula 4 10/01/24 13:45 Nasal Cannula 4 10/01/24 13:35 Nasal Cannula 4 10/01/24 13:25 Oxymask 9 10/01/24 13:17 Oxymask 9 10/01/24 08:53 Room Air Critical Care Results & Data Vital Signs (Past 12 Hours) Vital Signs Temp Pulse Pulse Resp BP BP Pulse Ox 10/01/24 15:06 81 17 97 10/01/24 15:00 10/01/24 15:00 10/01/24 14:50 36.8 C 86 18 105/63 96 10/01/24 14: 36.5 C 87 15 119/58 L 94 10/01/24 14:15 83 12 121/55 L 96 10/01/24 14:05 88 22 144/89 H 98 10/01/24 13:55 87 13 133/62 95 10/01/24 13:45 88 17 104/52 L 95 10/01/24 13:35 93 H 18 127/62 96 10/01/24 13:25 85 22 123/55 L 97 10/01/24 13:17 36.4 C L 89 16 125/55 L 97 10/01/24 08:53 36.5 C 68 18 131/55 L 95 Pulse Ox O2 Del Method O2 Del Method O2 Flow Rate O2 Flow Rate 10/01/24 15:06 10/01/24 15:00 Nasal Cannula 2 10/01/24 15:00 97 Nasal Cannula 2 10/01/24 14:50 Nasal Cannula 2 10/01/24 14:25 Nasal Cannula 4 10/01/24 14:15 Nasal Cannula 4 10/01/24 14:05 Nasal Cannula 4 10/01/24 13:55 Nasal Cannula 4 10/01/24 13:45 Nasal Cannula 4 10/01/24 13:35 Nasal Cannula 4 10/01/24 13:25 Oxymask 9 10/01/24 13:17 Oxymask 9 10/01/24 08:53 Room Air Lab & Micro Results (Past 24 Hours) RBC 3.68 M/uL (4.20-5.40) L 10/01/24 WBC 9.93 K/ul (4.8-10.8) 10/01/24 Hgb 10.3 g/dl (12.0-16.0) L 10/01/24 Hct 33.0 % (37.0-47.0) L 10/01/24 MCV 89.7 fL (80.0-100.0) 10/01/24 MCH 28.0 pg (25.0-34.0) 10/01/24 MCHC 31.2 g/dL (32.0-36.0) L 10/01/24 RDW Standard Deviation 47.9 fL (36.4-46.3) H 10/01/24 RDW Coefficient of Variation 14.6 % (11.5-14.5) H 10/01/24 Plt Count 323 K/uL (130-400) 10/01/24 MPV 10.4 fL (9.4-12.4) 10/01/24 Neutrophils (%) (Auto) 41.4 % 10/01/24 Lymphocytes (%) (Auto) 49.3 % 10/01/24 Monocytes # (Auto) 0.57 K/uL (0.11-0.59) 10/01/24 Eosinophils # (Auto) 0.26 K/uL (0.00-0.50) 10/01/24 Immature Granulocyte % (Auto) 0.3 % 10/01/24 Neutrophils # (Auto) 4.10 K/uL (1.40-6.50) 10/01/24 Lymphocytes # (Auto) 4.90 K/uL (1.20-3.40) H 10/01/24 Monocytes # (Auto) 0.57 K/uL (0.11-0.59) 10/01/24 Eosinophils # (Auto) 0.26 K/uL (0.00-0.50) 10/01/24 Basophils # (Auto) 0.07 K/uL (0.00-0.20) 10/01/24 Immature Granulocyte # (Auto) 0.03 K/uL (0.01-0.20) 5 Na 138 mmol/L (136-145) 10/01/24 K 4.4 mmol/L (3.5-5.1) 10/01/24 Cl 108 mmol/L (98-107) H 10/01/24 CO2 24 mmol/L (21-32) 10/01/24 Anion Gap 6 (3-11) 10/01/24 BUN 25 mg/dl (6-23) H 10/01/24 Creatinine 1.41 mg/dl (0.6-1.2) H 10/01/24 BUN/Creatinine Ratio 17.7 (10-20) 10/01/24 Glu 111 mg/dl (70-99(Fasting)) H 10/01/24 Ca 9.7 mg/dl (8.6-10.3) 10/01/24 Calcium Level 9.7 mg/dl (8.6-10.3) 10/01/24 08:39 Prothromb Time International Ratio 1.0 (0.9-1.1) 10/01/24 08:3 9 Diagnostic Findings (Past 24 Hours) Chest X-Ray 10/01/24 05:00 XR chest 2V PA/lateral CLINICAL HISTORY: preop COMPARISON STUDY: None FINDINGS: There is mild cardiomegaly without pulmonary vascular congestion. No effusion or consolidation. IMPRESSION: No acute findings. ACT 112: Negative or not required by law. Electronically signed by: Kwesi Forman M.D. 10/01/2024 9:17 AM I & O Totals 24 Hours 09/30/24 10/01/24 10/02/24 06:59 06:59 06:59 Intake Total 1650 / 1650 Output Total 550 / 550 Balance 1100 / 1100 Cumulative 09/27/24 15:16 thru 10/01/24 15:08 Intake Total 1650 Output Total 550 Balance 1100 RT Ventilator Mngmt (Last Documented) Ventilator Ordered Settings Respiratory Rate 17 10/01/24 15:06 Ventilator - PT Measurements Respiratory Rate 17 Coding Level of Care Code 01223 IN/OBS CONSULT LVL 2,35M Diagnoses Pseudoaneurysm of femoral artery following procedure T81.718A; I72.4 Hyperlipidemia E78.5 Hypertension I10 Hypothyroidism E03.9
[2024-10-01] MEDS: CLINDAMYCIN/D5W 600 MG/50 ML BAG IV SCH (16:46)
[2024-10-01] MEDS: traZODone HCL 100 MG TAB PO SCH (20:14)
[2024-10-01] MEDS: GABAPENTIN 300 MG CAP PO SCH (20:14)
[2024-10-01] MEDS: ARTIFICIAL TEARS OP SCH (20:16)
[2024-10-01] MEDS: MELATONIN 3 MG TAB PO SCH (20:16)
[2024-10-01] MEDS: ATORVASTATIN 40 MG TAB PO SCH (20:16)
[2024-10-01] MEDS ORDERED: DEXTROSE 50% 50 ML SYRINGE IV PRN (20:27)
[2024-10-01] MEDS ORDERED: CARBOHYDRATES FOR HYPOGLYCEMIA PO PRN (20:27)
[2024-10-01] MEDS ORDERED: GLUCOSE 40% GEL 15 GM TUBE PO PRN (20:27)
[2024-10-01] MEDS ORDERED: GLUCAGON FOR INJ 1 MG VIAL SQ PRN (20:27)
[2024-10-01] MEDS ORDERED: GLUCOSE 10 TAB/TUBE PO PRN (20:27)
[2024-10-01] MEDS: ICU Protocol for HYPERglycemia SCH (20:41)
[2024-10-01] MEDS: INSULIN ASPART PER UNIT CHARGE SC SCH (20:41)
[2024-10-02 05:11] LABS: Basophils # (auto) 0.01 K/uL (0.00-0.20); Basophils % (auto) 0.1 %; Hematocrit (blood only) 23.9 % (37.0-47.0); Hemoglobin 7.6 g/dl (12.0-16.0); Immature Granulocytes # (auto) 0.04 K/uL (0.01-0.20); Immature Granulocytes % (auto) 0.5 %; Lymphocytes # (auto) 2.04 K/uL (1.20-3.40); Lymphocytes % (auto) 25.2 %; Mean Corpuscular Hemoglobin 28.7 pg (25.0-34.0); Mean Corpuscular Hgb Conc 31.8 g/dL (32.0-36.0); Mean Corpuscular Volume 90.2 fL (80.0-100.0); Mean Platelet Volume 10.7 fL (9.4-12.4); Monocytes # (auto) 0.54 K/uL (0.11-0.59); Monocytes % (auto) 6.7 %; Neutrophils # (auto) 5.47 K/uL (1.40-6.50); Neutrophils % (auto) 67.5 %; Platelet Count 240 K/uL (130-400); Red Blood Count 2.65 M/uL (4.20-5.40)
[2024-10-02] MEDS ORDERED: SODIUM CHLORIDE 0.9% 100 ML IV PRN ×2 (05:29→06:16)
[2024-10-02 05:36] LABS: Ovalocytes 1+; Polychromasia 1+
[2024-10-02] MEDS: LEVOTHYROXINE SODIUM 50 MCG TABLET PO SCH (06:06)
[2024-10-02] MEDS: oxyCODONE/ACETAMINOPHEN 5mg/325mg TAB PO PRN (07:35)
[2024-10-02] MEDS: CLOPIDOGREL BISULFATE 75 MG TAB PO SCH (07:36)
[2024-10-02] MEDS: RIVAROXABAN 2.5 MG TAB PO SCH (07:36)
[2024-10-02] MEDS: lisinopril 40 MG TAB PO SCH (07:37)
[2024-10-02] MEDS: CALCIUM 600MG + VIT D 400 IU TAB PO SCH (07:37)
[2024-10-02] MEDS: hydroCHLOROthiazide 25 MG TAB PO SCH (07:37)
[2024-10-02] MEDS: VIBEGRON 75 MG TAB PO SCH (07:37)
[2024-10-02] MEDS: amLODIPine BESYLATE 5 MG TAB PO SCH (07:37)
[2024-10-02] MEDS: FLUTICASONE FUROATE 100MCG 14 PUFFS/INHALER INH SCH (07:38)
[2024-10-02] MEDS: FEBUXOSTAT 40 MG TABLET PO SCH (07:39)
[2024-10-02] MEDS ORDERED: RIVAROXABAN 2.5 MG TAB PO SCH (08:00)
--- NOTE | 2024-10-02 10:20 | Surgery Progress Note ---
Date of Service October 02, 2024 Assessment & Plan (1) S/P vascular surgery: Plan: Pt doing well POD #1 after R groin pseudoaneurysm repair. Discussed with Dr Glover, will transfer to med/surg today. PT/OT eval, ok to ambulate with assistance and get OOB to chair (2) Acute blood loss as cause of postoperative anemia: Plan: Pt hgb 7.6 today, down from 10 preop. Likely related to surgery yesterday. 1 U PRBC ordered. No sign of active bleeding. H &H tomorrow. Admission and Anticipated Discharge Date Admission Date: October 01, 2024 Subjective 84 yo f POD #1 after R groin pseudoaneurysm repair, seen in f/u today. Pt admits R groin incisional pain and general fatigue. No other complaints. Review of Systems Review of Systems: All systems reviewed & are unremarkable except as noted in HPI & below Physical Exam Constitutional: WD/WN, vitals as above cooperative and comfortable; not in distress ENMT: Ears: no hearing impairment Neck: trachea midline Respiratory: normal respiratory effort, lungs clear to auscultation Auscultation: + diminished lung sounds Cardiovascular: Rate/Rhythm: regular rate and regular rhythm Vessels: posterior tibial pulses present, dorsalis pedis pulses present and radial pulses present; + abnormal peripheral pulses Extremities: normal capillary refill; no edema Gastrointestinal (Abdomen): Inspection/Auscultation: abdomen normal to inspection and normal bowel sounds Percussion/Palpation: abdomen soft; abdomen nontender Musculoskeletal: no cyanosis or clubbing, extremities motor strength 5/5 Extremities: + amputation noted (R great toe) Skin: no rashes, warm and dry + incision (R groin soft, prevena in place, no erythema, ecchymosis) Neurologic: moves all extremities and awake; no focal motor deficits and not confused Psychiatric: A+Ox3, euthymic affect Results & Data Vital Signs (Past 12 Hours) Vital Signs Temp Pulse Pulse Resp BP BP Pulse Ox 10/02/24 09:42 37.2 C 72 18 110/49 L 92 10/02/24 08:00 79 17 93 10/02/24 08:00 10/02/24 07:38 10/02/24 07:38 37.2 C 10/02/24 07:07 124/63 10/02/24 07:03 78 16 94 10/02/24 07:00 73 14 95 10/02/24 06:00 83 18 108/49 L 95 10/02/24 05:07 67 21 100/46 L 93 10/02/24 04:19 36.8 C 102/44 L 10/02/24 04:12 69 18 92 10/02/24 03:10 67 20 100/51 L 95 10/02/24 02:07 67 12 100/51 L 97 10/02/24 01:15 62 12 98/53 L 97 10/02/24 00:07 37.0 C 72 11 L 105/67 96 10/02/24 00:00 67 10/01/24 23:00 62 13 100/64 94 O2 Del Method O2 Del Method 10/02/24 09:42 10/02/24 08:00 10/02/24 08:00 Room Air 10/02/24 07:38 Room Air 10/02/24 07:38 10/02/24 07:07 10/02/24 07:03 Room Air 10/02/24 07:00 10/02/24 06:00 Room Air 10/02/24 05:07 Room Air 10/02/24 04:19 10/02/24 04:12 Room Air 10/02/24 03:10 Room Air 10/02/24 02:07 Room Air 10/02/24 01:15 Room Air 10/02/24 00:07 Room Air 10/02/24 00:00 10/01/24 23:00 Room Air
[2024-10-03 08:17] LABS: Hematocrit (blood only) 28.2 % (37.0-47.0); Hemoglobin 8.9 g/dl (12.0-16.0)
[2024-10-03 08:49] LABS: Calcium 8.4 mg/dl (8.6-10.3); Potassium 4.5 mmol/L (3.5-5.1)
[2024-10-03 08:55] LABS: BUN Creatinine Ratio 17.1 (10-20); Creatinine Clr Calc Pharmacy 28.3 ml/min
[2024-10-03] MEDS ORDERED: Nursing to Pharmacy Communication SCH (09:30)
--- NOTE | 2024-10-03 15:38 | Surgery Progress Note ---
Date of Service October 03, 2024 Assessment & Plan (1) S/P vascular surgery: Plan: Pt doing well POD #2 after R groin pseudoaneurysm repair. Continue pain control and PT/OT in preparation for discharge home with HH in next 1-2 days. (2) Acute blood loss as cause of postoperative anemia: Plan: Pt hgb improved, stable. Admission and Anticipated Discharge Date Admission Date: October 01, 2024 Subjective 84 yo f POD #2 after R groin pseudoaneurysm repair, seen in f/u today. Pt admits R groin incisional pain and general fatigue. No other complaints. Has been OOB to chair and ambulating with walker. Wishes to go home with therapy, not rehab. Review of Systems Review of Systems: All systems reviewed & are unremarkable except as noted in HPI & below Physical Exam Constitutional: WD/WN, vitals as above cooperative and comfortable; not in distress ENMT: Ears: no hearing impairment Neck: trachea midline Respiratory: normal respiratory effort, lungs clear to auscultation A uscultation: + diminished lung sounds Cardiovascular: Rate/Rhythm: regular rate and regular rhythm Vessels: posterior tibial pulses present, dorsalis pedis pulses present and radial pulses present; + abnormal peripheral pulses Extremities: normal capillary refill; no edema Gastrointestinal (Abdomen): Inspection/Auscultation: abdomen normal to inspection and normal bowel sounds Percussion/Palpation: abdomen soft; abdomen nontender Musculoskeletal: no cyanosis or clubbing, extremities motor strength 5/5 Extremities: + amputation noted (R great toe) Skin: no rashes, warm and dry + incision (R groin soft, prevena in place, no erythema, ecchymosis) Neurologic: moves all extremities and awake; no focal motor deficits and not confused Psychiatric: A+Ox3, euthymic affect Results & Data Vital Signs (Past 12 Hours) Vital Signs Temp Pulse Resp BP Pulse Ox O2 Del Method O2 Del Method 10/03/24 15:06 36.7 C 87 18 137/55 L 96 Room Air 10/03/24 08:06 Room Air 10/03/24 07:39 36.7 C 74 18 98/63 L 94 Room Air
[2024-10-04 11:57] LABS: Hematocrit (blood only) 28.6 % (37.0-47.0)
--- NOTE | 2024-10-04 15:01 | Surgery Progress Note ---
Date of Service October 04, 2024 Assessment & Plan (1) S/P vascular surgery: Plan: Pt doing well after R groin pseudoaneurysm repair. Will need to increase ambulation or will need rehab. (2) Acute blood loss as cause of postoperative anemia: Plan: Hgb 9.0 today. Stable Admission and Anticipated Discharge Date Admission Date: October 01, 2024 Subjective 84 yo f POD #3 after R groin pseudoaneurysm repair, seen in f/u today. Still complaining of groin discomfort. Not ambulating at this time. Physical Exam Constitutional: WD/WN, vitals as above Respiratory: normal respiratory effort; no respiratory distress Cardiovascular: Rate/Rhythm: regular rate and regular rhythm Skin: + incision (prevena in place) Psychiatric: A+Ox3, euthymic affect Results & Data Vital Signs (Past 12 Hours) Vital Signs Temp Pulse Resp BP BP Pulse Ox O2 Del Method 10/04/24 09:36 96/54 L 10/04/24 08:04 96/48 L 10/04/24 07:32 36.6 C 77 20 85/52 L 97/51 L 95 Room Air
[2024-10-05 07:32] VITALS: TEMP 98.2
--- NOTE | 2024-10-05 12:25 | Surgery Progress Note ---
Date of Service October 05, 2024 Assessment & Plan (1) S/P vascular surgery: Plan: Pt doing well after R groin pseudoaneurysm repair. Will d\c today (2) Acute blood loss as cause of postoperative anemia: Plan: Hgb 9.0 today. Stable Admission and Anticipated Discharge Date Admission Date: October 01, 2024 Subjective 84 yo f POD #3 after R groin pseudoaneurysm repair. Ambulated. Pain improving. No foot or leg pain other than incisional Physical Exam Constitutional: WD/WN, vitals as above Respiratory: normal respiratory effort; no respiratory distress Cardiovascular: Rate/Rhythm: regular rate and regular rhythm Skin: + incision (prevena in place) Psychiatric: A+Ox3, euthymic affect Results & Data Vital Signs (Past 12 Hours) Vital Signs Temp Pulse Resp BP Pulse Ox O2 Del Method 10/05/24 07:31 36.8 C 78 16 123/65 98 Room Air
--- NOTE | 2024-10-05 12:27 | Discharge Summary ---
Date of Service October 05, 2024 Admission HPI Per Admitting Provider Name: ELIGIO BASS Patient Number: [id number] : 1940 Date of Service: 09/24/2024 Chief Complaint: _New patient consultation for right groin pseudoaneurysm HPI: _Ms. Bass is an elderly female who presents to Dr. Glover's vascular clinic as a new patient regarding a right groin pseudoaneurysm. Patient states that she underwent an angiogram with intervention almost [address] Diaz[address] Postoperatively she was feeling okay, but felt that there was a lump in her right groin. She feels that this has increased in size somewhat over the past 1 to 2 weeks, and it is uncomfortable for her at the groin. She denies any significant ecchymosis or swelling of the right leg. She does admit some pretty significant low back pain in her spine which radiates to her buttocks bilate rally. She is she has had back pain like this before, and she is not sure what aggravated this. She denies headache, fever, chest pain, short of breath, bone pain, nausea, vomiting, resting, claudication, nonhealing wounds or ulcers, other complaints. She has had multiple angiogram procedures in her bilateral lower extremities in the past, but these records are not available for review today. Review of systems: A total of 14 systems were reviewed and are negative aside from what is related in her HPI Imaging: Patient did apparently have an ultrasound image performed of the right groin which indicated 3.9 cm pseudoaneurysm with a 0.9 cm neck. Unfortunately the report and the imaging are not available for review today as these were not sent to us. Emotional Assessment (PHQ-2) (Data Documented on:09/24/2024 12:44) [place] down or depressed over last 2 weeks? 0 - Not at All Little interest in doing things? 0 - Not at All PHQ-2 Score: 0 - Emotional health assessment NEGATIVE Current Home Meds: (Last Updated 09/24 12:59) amLODIPine (amLODIPine 5 mg oral tablet) 5 mg PO Daily atorvastatin (atorvastatin 40 mg oral tablet) 40 mg PO Daily clopidogrel (Plavix 75 mg oral tablet) 75 mg PO Daily cycloSPORINE ophthalmic (Restasis 0.05% ophthalmic emulsion) 1 drop both eyes q12h febuxostat (Uloric 40 mg oral tablet) 40 mg PO Daily fluticasone (Arnuity Ellipta 100 mcg inhalation powder) 1 puff inhaled Daily gabapentin (gabapentin 300 mg oral capsule) 300 mg PO bid hydroCHLOROthiazide (hydroCHLOROthiazide 25 mg oral tablet) 25 mg PO Daily levothyroxine 50 mcg PO Daily lisinopril (lisinopril 40 mg oral tablet) 40 mg PO Daily melatonin 5 mg PO qhs rivaroxaban (Xarelto 2.5 mg oral tablet) 2.5 mg PO bid traZODone (traZODone 100 mg oral tablet) 100 mg PO qhs unknown medication (L Theanine) 200 mg PO qhs vibegron (Gemtesa) 75 mg PO Daily Allergies and Sensitivities: sulfa drugs(Hives) penicillin(hives) Past Medical History: Problems: Pseudoaneurysm of femoral artery Peripheral arterial disease Hypertension Neuropathy Anxiety Hypothyroidism Hypercholesterolemia COPD Brain aneurysm CKD Surgical history: Positive for tonsillectomy, cholecystectomy, appendectomy, hysterectomy, multiple arteriography with intervention Family history: Coronary disease, hypertension, diabetes. Social history: Patient is a previous smoker, having smoked 1 pack a day and quit in 2018. She denies any alcohol or illicit drug use. OBJECTIVE Vitals: Last Updated 09/24/24 12:44 Date Temp BP Location Pulse RR SpO2 Pain 09/24/24 130/60 Right Arm 68 18 94 10 Vital Signs are the last 3 documented. No Orthostatic Data Available Height and Weight: Last Updated 09/24/24 12:44 Date BMI Wt(kg) Wt(lb) Method Ht(cm) (ft-in) Method 09/24/24 71.1 156 Standing Scale Heights and Weights are the last 3 documented. Physical Exam Constitutional: In general patient is a healthy appearing for age well-nourished well-developed elderly female in no distress. She is alert and oriented without any focal deficits. She is somewhat anxious and tearful. Her carotids do not demonstrate a bruit. Her heart is regular, lungs are clear but decreased throughout. Abdomen is soft and nontender with normoactive bowel sounds in all 4 quadrants. Brachial radial and femoral pulses are +3. Lower extremity distal pulses are +2 in the right, +1 on the left. She is surgical absence of her toes 1 through 3 on the right. Her right groin proximal to her healed puncture site it does demonstrate a palpable pulsatile mass which measures approximately 4 cm in diameter. It is mildly tender. There is no erythema, or ecchymosis present. ASSESSMENT: _ PLAN: _ 1 ) _right groin pseudoaneurysm Patient does have a right groin pseudoaneurysm measuring approximately 4 cm in diameter, with a neck measuring approximately 1 cm in diameter. Due to the size of the neck, it is unlikely that this will will resolve without surgical intervention. Dr. Glover also saw the patient today, and recommends that patient undergo open surgical repair of the right groin pseudoaneurysm with possible interposition graft if necessary. The procedure risks benefits and alternatives were discussed with the patient by myself at Dr. Glover's request. Patient expresses understanding and agreement to proceed. She is advised to call with any questions or concerns. She is agreeable this plan. Her daughter was also present today as well. Thank you for letting us participate in the care of this patient. I have personally spent_49__ minutes performing [id number]-lj-[id number] and [id number]-[id number]-face activities on this date of service.Time does not include separately reported services. Activities Include: x__ review of the medical record x__ obtaining a history _x_ physical exam/evaluation __ review labs _x_ review radiology reports _x_ counseling/educating patient/family/caregiver __ discussion/referral to other healthcare professional _x_ documenting care in the medical record __ independent interpretation of results _x_ communication of results to patient/family/caregiver _x_ coordination of care Signature Line Electronic Signature on File CC: Quinn Diaz MD [id number] [facility] [address] * Electronically Reviewed/Signed by: Ro Arias PA-C Author Signature Dt/Tm:09/24/2024 04:20 PM [facility] [address], [address] [place]. [address] Result Type: HVI Outpt Note Date of Service: September 24, 2024 16:05 EDT Authorization Status: Final Author or Import Date: SHERI Arias Lynn on September 24, 2024 16:20 EDT Verified By: SHERI Arias Lynn on September 24, 2024 16:20 EDT Encounter info: [id number], JARET MA07, Clinic, 09/24/2024 - 09/24/2024 Admission Exam Per Admitting Provider Constitutional: In general patient is a healthy appearing for age well-nourished well-developed elderly female in no distress. She is alert and oriented without any focal deficits. She is somewhat anxious and tearful. Her carotids do not demonstrate a bruit. Her heart is regular, lungs are clear but decreased throughout. Abdomen is soft and nontender with normoactive bowel sounds in all 4 quadrants. Brachial radial and femoral pulses are +3. Lower extremity distal pulses are +2 in the right, +1 on the left. She is surgical absence of her toes 1 through 3 on the right. Her right groin proximal to her healed puncture site it does demonstrate a palpable pulsatile mass which measures approximately 4 cm in diameter. It is mildly tender. There is no erythema, or ecchymosis present. Principal Diagnosis Right common femoral pseudoaneurysm Discharge Exam Constitutional WD/WN, vitals as above Respiratory normal respiratory effort; no respiratory distress Cardiovascular Rate/Rhythm: regular rate and regular rhythm Skin + incision (prevena in place) Psychiatric A+Ox3, euthymic affect Discharge Data Allergies Allergy/AdvReac Type Severity Reaction Status Date / Time Penicillins Allergy Intermediate hives Verified 10/01/24 08:54 Sulfa (Sulfonamide Allergy Intermediate hives Verified 10/01/24 08:54 Antibiotics) roflumilast [From Daliresp] AdvReac Mild upset Verified 10/01/24 08:54 stomach Consultations 10/01/24 12:21 Consult Professional Services Consultant Routine Procedures Performed Operation Date: 10/01/24 09:45 Actual Procedures p Right Groin Pseudoaneurysm Repair (Right) - Everardo Glover MD Hospital Course (1) S/P vascular surgery: Pt doing well after R groin pseudoaneurysm repair. Will d\c today (2) Acute blood loss as cause of postoperative anemia: Hgb 9.0 today. Stable Total Time Total Time Spent Total Time Spent (In Minutes): x Discharge Plan Discharge Items Patient Disposition: Home - Home Health Services Reason For Visit: Right Groin Pseudoaneurysm Discharge Diagnosis: Right femoral pseudoaneurysm Activity: Per Instructions section Non-emergency contact: Surgeon Call non-emergency contact if: your temperature is above 101.5, your wound has increased redness and your wound has increased drainage Follow-up/Referrals: Berry Garcia D.O. [Primary Care Provider] - Diet: Heart Healthy Addtl Attending Provider Instructions: ACTIVITY RECOMMENDATIONS: Remove dressing on Tuesday May wash wound starting Tuesday. Do not soak underwater. SPECIAL CARE INSTRUCTIONS: Call your doctor if: * Temperature above 101 degrees * Pain not relieved by pain medicine ordered * There is increased drainage or redness from any incision * You have any unanswered questions or concerns. Call [phone] to schedule a follow up appointment if one not already scheduled. Pending Studies at Discharge: No Stand-Alone Forms: My [email or web address], Pain - Opioid Pain Management, Smoking Cessation Medications and DC Order Prescriptions: New oxycodone-acetaminophen [Percocet] 5-325 mg Tablet 1 tab PO Q4H PRN (Reason: pain) Qty: 30 0RF Continued atorvastatin [Lipitor] 40 mg Tablet 40 mg PO HS clopidogrel [Plavix] 75 mg Tablet 75 mg PO QAM amlodipine 5 mg Tablet 5 mg PO QAM levothyroxine [Synthroid] 50 mcg Tablet 50 mcg PO QAM gabapentin 300 mg Capsule 300 mg PO BID hydrochlorothiazide 25 mg Tablet 25 mg PO QAM lisinopril 40 mg Tablet 40 mg PO QAM febuxostat [Uloric] 40 mg Tablet 40 mg PO QAM rivaroxaban [Xarelto] 2.5 mg Tablet 2.5 mg PO BID Gemtesa 75 mg Tablet 75 mg PO QAM Mood Booster 200 mg PO HS calcium carbonate-vitamin D3 600 mg-5 mcg (200 unit) Tablet 1 tab PO QAM melatonin 5 mg Tablet 5 mg PO HS trazodone 100 mg Tablet 200 mg PO HS Arnuity Ellipta 100 mcg/actuation Blister With Device 1 inh INHALATION DAILY Medical Marijuana 1 dose inhalation HS PRN (Reason: Sleep) cyclosporine 0.05 % Drops 1 drp OPHTHALMIC (EYE) Q12H Discharge Orders: Discharge Order (Routine); Ordered 10/05/24 Ordered By: Everardo White/Other Patient Handouts: DVT Post Op Prevention Admission Data Admit Date/Time: 10/01/24 12:21 Attending Provider: Everardo Glover Admit Provider: Everardo Glover Primary Care Provider: Berry Garcia Other Providers: Alfonso Kirby; Kayden Thomas; Quan Luo; Jacinto Ramon; Max Richardson; Pepe Spann; Monse Fam Other Interventions: Discharge Summary Assessment (RN) Last Done: 10/05/24 11:30
[2024-10-05 13:31] VITALS: BP 125/70; PULSE 70; RESP 20; O2SAT 95
--- NOTE | 2024-10-09 07:41 | Coding Query ---
CODING QUERY To promote full compliance with coding requirements relating to patient care, provider participation is requested in all cases of senior consulting manager uncertainty. Please assist us with the question(s) below: Coding Question(s): Pt admitted with right femoral artery pseudoaneurysm. OP report stated pt with right groin pseudoaneurysm s/p angiogram with intervention. Please check below the phrase that describes the pseudoaneurysm. Thank you. Jaylen Jenkins OIL AND GAS FIELD TECHNICIAN [facility] Physician's Response(s): ___x____ The right femoral pseudoaneurysm is not a complication of the prior procedure (angiogram with intervention) The right femoral pseudoaneurysm is a complication of the prior procedure (angiogram with intervention) Other: please document: Principal Diagnosis: "that condition established after study, to be chiefly responsible for occasioning the admission of the patient to the hospital for care." Co-Existing Principal Diagnosis: "when two or more diagnoses equally meet the criteria for principal diagnosis as determined by the circumstances of admission, diagnostic work up, and/or therapy provided, and the Alphabetic Index, Tabular List, or another coding guideline does not provide sequencing direction, any one of the diagnoses may be sequenced first." "When the physician has documented what appears to be a current diagnosis in the body of the record, but has not included the diagnosis in the final diagnostic statement, the physician should be asked whether the diagnosis should be added." (Source Coding Clinic 2 QTR90. p3-4) GERALD
== END 2024-10-05 13:31 | disposition home health service (06) | DRG 253 ==
LOC: ASU 08:27 → 1E 12:21 → 3N 10-02 18:22

== ENCOUNTER 2024-10-08 06:52 | Inpatient (IN) ==
[2024-10-08] MEDS: ONDANSETRON INJ 2 MG/ML 2 ML VIAL IV STA (07:09)
[2024-10-08] MEDS: SODIUM CHLORIDE 0.9% 1,000 ML IV STA (07:09)
[2024-10-08] MEDS: MoRPHine SULFATE 4 MG/ML 1 ML CARP\\VIAL IV STA (07:10)
--- NOTE | 2024-10-08 07:10 | Emergency Department Note ---
Impression & Plan Surgical wound infection Admission ED Provider Note HPI: History obtained from patient. The patient is a 84-year-old female with history of recent common femoral artery pseudoaneurysm repair by vascular surgery (Dr. Glover) on 10/01/2024, who presents the emergency department with a chief complaint of pain in her right groin that is been ongoing for about the past 8 hours. Patient states that the pain has been getting progressively worse. On arrival here to the ED the patient does not have any active bleeding from the wound. She denies any chest pain or shortness of breath but states the pain in her right kind is fairly severe. Patient has motor and sensory function intact distally in the right foot on arrival. The right lower extremity is warm and appears otherwise well- perfused without evidence of cyanosis. ROS: - Per HPI Differential Diagnosis: Worsening pseudoaneurysm/active extravasation of the right common femoral artery, cellulitis, necrotizing soft tissue infection, ischemic limb, amongst other potential pathologies. *Outpatient medications and allergy history reviewed. 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, there is not a palpable dorsalis pedis or posterior tibial pulse however the right lower extremity is warm to the touch and motor function is intact, capillary refill is slightly delayed, otherwise no edema, Doppler signal is detected in the posterior tibialis and dorsalis pedis pulse Skin: Surgical wound to the right groin with some mild surrounding erythema and purulence upon elevation of the pannus, migel appear to be in place without wound dehiscence, there is no crepitus to palpation of the surrounding wound, there is no pulsatile mass palpated, there is no active bleeding from the wound, the wound is tender to touch Neuro: Alert, no focal deficits Psychiatric: Cooperative INDEPENDENT INTERPRETATIONS: patient monitor: (As interpreted by myself): - An order was placed for continuous cardiac monitoring - Patient was noted to be in sinus rhythm with a rate of 70 EKG: (As interpreted by myself): Rate: 69 Rhythm: Sinus rhythm Intervals: Within normal limits ST changes: No ST elevation Time: 713 Interventions provided in ED: - IV morphine, IV Zofran, IV fluid bolus, IV vancomycin, IV Zosyn, IV clindamycin Medical Decision Making: IV was established and lab work obtained, patient was placed on patient monitor. Lab work shows no leukocytosis, hemoglobin is stable at 9.6, platelet count is normal. Lab work does not show any evidence of any critical findings, creatinine is mildly elevated above baseline at 1.73 for which the patient was given IV fluids. Lactic acid is normal, procalcitonin is fairly low at 0.11. Troponin is negative x 1, EKG shows sinus rhythm without any acute ischemic changes per my interpretation. Given the location of the patient's pain and recent surgery for pseudoaneurysm repair on 10/01, I did order CT angiography of the abdomen and pelvis as well as the right lower extremity to evaluate for any potential active extravasation or underlying infection. Per the interpreting radiologist there is a hypodense necrotic collection in this area potentially concerning for necrotizing fasciitis. Patient states her pain is greatly improved on my reassessment following the above interventions. Patient was started on IV antibiotics over concern for potential infection/necrotizing fasciitis. I did discuss the patient's presentation with on-call vascular surgery, Dr. Glover, via his nurse in the OR who relayed the information to him over the phone about the patient's presentation. He recommended (through the OR nurse to myself over the phone) consulting general surgery as there was no active extravasation or evidence of new pseudoaneurysm on CT imaging. I then discussed the patient's presentation with the on-call midlevel provider for the general surgery service of Dr. Delonte Narayanan, Lio LION, and general surgery did evaluate the patient at the bedside. Following their evaluation I was informed via [place] text from Lio Diallo that following evaluation the general surgery service does not believe there is active necrotizing fasciitis, and the findings of air/gas on CT imaging were likely related to postoperative changes if she did have recent instrumentation. Patient does appear well on my reassessment, she is afebrile without leukocytosis. Despite this given the degree of pain the patient was having with potential for infection on CT imaging I do feel she should be admitted for IV antibiotics, pain control, and surgical consultation to ensure that she does not have any worsening or progressive process. I discussed this with the on-call hospitalist for [facility], Dr. Sneed, and the patient was placed for admission in stable condition. Consultants/Discussions held with other healthcare providers: - General Surgery, Dr. Delonte Narayanan - Hospitalist, Dr. Sneed - Vascular Surgery, Dr. Glover Disposition discussion held by myself with: - Patient and patient's daughter at the bedside Diagnosis: 1. Postoperative wound cellulitis, acute 2. Pain at surgical incision site, acute Disposition: Admission Mekhi Khalil DO Emergency Medicine Past Med/Surg History Problem List (Updated 10/08/24 @ 13:36 by Mekhi Khalil DO) Surgical wound infection (Acute) COPD (chronic obstructive pulmonary disease) Type 2 diabetes mellitus Essential hypertension Postoperative wound infection Acute blood loss as cause of postoperative anemia S/P vascular surgery Pseudoaneurysm of femoral artery following procedure Encounter for pre-operative examination Medical History Hearing deficit kake Dry eye syndrome Medical marijuana use Insomnia History of chronic lymphocytic leukemia no treatment Hx of gout Arthritis Mixed stress and urge urinary incontinence GERD (gastroesophageal reflux disease) Diabetes mellitus, type 2 diet controlled (no meds "my choice") Hypothyroidism PVD (peripheral vascular disease) Anemia PTSD (post-traumatic stress disorder) Panic attacks follows with pysch>every week History of anxiety Peripheral neuropathy Brain aneurysm 37 years ago>cont. to have aphasia (clamped at [facility]) Cardiac murmur Dr. Diaz cards Hypertension Hyperlipidemia Chronic obstructive pulmonary disease Asthma "only has daily inhaler">controlled Surgical History H/O foot surgery needle removed from foot History of ankle surgery right/left History of total knee replacement right/left H/O breast biopsy benign History of amputation right first 3 toes History of esophagogastroduodenoscopy (EGD) History of colonoscopy History of hysterectomy History of cholecystectomy History of appendectomy H/O vascular surgery 4 total stents/1 balloon in legs (done by Dr. Quinn Diaz). last done 08/29/[address] [facility] History of tooth extraction History of tonsillectomy History of cataract surgery right/left Family History Other No family history of adverse response to anesthesia Social History Smoking Status: Never smoker Tobacco Type: Cigarettes Second Hand Exposure: No; Do You Dip or Chew Tobacco: No; Hx Alcohol Use: No Preferred Language: Arabic Communication Ability: Effective Rn Mds Required: No Beliefs That Will Affect Care: None Current Living Situation: Alone Feels Safe at Home: Yes Assistive Devices: Walker Allergies Allergies Allergy/AdvReac Type Severity Reaction Status Date / Time Penicillins Allergy Intermediate hives Verified 10/08/24 08:41 Sulfa (Sulfonamide Allergy Intermediate hives Verified 10/08/24 08:41 Antibiotics) roflumilast [From [facility]] AdvReac Mild upset Verified 10/08/24 08:41 stomach Home Meds Home Medications Medication Instructions Recorded Confirmed Medical Marijuana 1 dose inhalation HS PRN Sleep 09/28/24 10/08/24 Mood Booster 200 mg PO HS 09/28/24 10/08/24 amlodipine 5 mg tablet 5 mg PO QAM 09/28/24 10/08/24 atorvastatin 40 mg tablet (Lipitor) 40 mg PO HS 09/28/24 10/08/24 calcium 600 mg (as 1 tab PO QAM 09/28/24 10/08/24 carbonate)-vitamin D3 5 mcg (200 unit) tablet clopidogrel 75 mg tablet (Plavix) 75 mg PO QAM 09/28/24 10/08/24 cyclosporine 0.05 % eye drops 1 drp ophthalmic (eye) Q12H 09/28/24 10/08/24 febuxostat 40 mg tablet (Uloric) 40 mg PO QAM 09/28/24 10/08/24 fluticasone furoate 100 1 inh inhalation DAILY 09/28/24 10/08/24 mcg/actuation blister powder for inhalation (Arnuity Ellipta) gabapentin 300 mg capsule 300 mg PO BID 09/28/24 10/08/24 hydrochlorothiazide 25 mg tablet 25 mg PO QAM 09/28/24 10/08/24 levothyroxine 50 mcg tablet 50 mcg PO QAM 09/28/24 10/08/24 (Synthroid) lisinopril 40 mg tablet 40 mg PO QAM 09/28/24 10/08/24 melatonin 5 mg tablet 5 mg PO HS 09/28/24 10/08/24 rivaroxaban 2.5 mg tablet (Xarelto) 2.5 mg PO BID 09/28/24 10/08/24 trazodone 100 mg tablet 200 mg PO HS 09/28/24 10/08/24 vibegron 75 mg tablet (Gemtesa) 75 mg PO QAM 09/28/24 10/08/24 oxycodone 10 mg tablet 10 mg PO QID PRN Pain 10/08/24 10/08/24 Previous Rx's Medication Instructions Recorded oxycodone-acetaminophen 5 mg-325 1 tab PO Q4H PRN pain #30 tabs 10/05/24 mg tablet (Percocet) Results & Data (ED) Vital Signs Vital Signs - 24 hr 10/08/24 06:59 10/08/24 07:45 10/08/24 08:09 Temperature 37.1 C Temperature Source Oral Pulse Rate 78 74 83 Pulse Rate from SpO2 Sensor 74 83 Respiratory Rate 20 17 17 Respiratory Effort / Characteristics Non-Labored Spontaneous Respiratory Depth Normal Blood Pressure 168/74 H 127/69 109/50 L Blood Pressure Mean 105 88 69 Pulse Oximetry 99 97 98 Oxygen Delivery Method Room Air Oxygen Flow Rate Sepsis Recent Fever Within 48 Hours No Sepsis New/Unexplained Change in Mental Status N/A Sepsis Action Taken by Nursing No Action Required 10/08/24 08:13 10/08/24 08:30 10/08/24 09:00 Temperature Temperature Source Pulse Rate 83 82 72 Pulse Rate from SpO2 Sensor 80 Respiratory Rate 12 12 Respiratory Effort / Characteristics Respiratory Depth Blood Pressure 103/49 L 108/92 Blood Pressure Mean 67 97 Pulse Oximetry 99 98 Oxygen Delivery Method Oxygen Flow Rate Sepsis Recent Fever Within 48 Hours Sepsis New/Unexplained Change in Mental Status Sepsis Action Taken by Nursing 10/08/24 09:30 10/08/24 09:33 10/08/24 10:24 Temperature Temperature Source Pulse Rate 73 68 67 Pulse Rate from SpO2 Sensor 69 67 Respiratory Rate 15 13 12 Respiratory Effort / Characteristics Respiratory Depth Blood Pressure 119/65 119/65 135/73 Blood Pressure Mean 71 83 93 Pulse Oximetry 97 94 98 Oxygen Delivery Method Nasal Cannula Oxygen Flow Rate 2 Sepsis Recent Fever Within 48 Hours Sepsis New/Unexplained Change in Mental Status Sepsis Action Taken by Nursing 10/08/24 11:00 10/08/24 11:00 10/08/24 11:36 Temperature Temperature Source Pulse Rate 74 76 65 Pulse Rate from SpO2 Sensor 75 Respiratory Rate 17 19 18 Respiratory Effort / Characteristics Respiratory Depth Blood Pressure 112/58 L 112/58 L 126/61 Blood Pressure Mean 76 70 85 Pulse Oximetry 100 99 100 Oxygen Delivery Method Nasal Cannula Nasal Cannula Oxygen Flow Rate 2 2 Sepsis Recent Fever Within 48 Hours Sepsis New/Unexplained Change in Mental Status Sepsis Action Taken by Nursing 10/08/24 11:42 Temperature Temperature Source Pulse Rate 68 Pulse Rate from SpO2 Sensor 69 Respiratory Rate 17 Respiratory Effort / Characteristics Respiratory Depth Blood Pressure Blood Pressure Mean Pulse Oximetry 99 Oxygen Delivery Method Nasal Cannula Oxygen Flow Rate 2 Sepsis Recent Fever Within 48 Hours Sepsis New/Unexplained Change in Mental Status Sepsis Action Taken by Nursing Laboratory Data 10/08/24 07:07 10/08/24 07:07 Lab Results 10/08/24 10/08/24 10/08/24 Range/Units 07:07 07:15 08:54 WBC 10.63 (4.8-10.8) K/ul RBC 3.37 L (4.20-5.40) M/uL Hgb 9.6 L (12.0-16.0) g/dl POC Hgb 9.9 L (12.0-16.0) g/dl Hct 29.9 L (37.0-47.0) % POC Hct 29 L (37-47) % MCV 88.7 (80.0-100.0) fL MCH 28.5 (25.0-34.0) pg MCHC 32.1 (32.0-36.0) g/dL RDW Std Deviation 46.8 H (36.4-46.3) fL RDW Coeff of Emanuel 14.5 (11.5-14.5) % Plt Count 365 (130-400) K/uL MPV 9.9 (9.4-12.4) fL Immature Gran % (Auto) 0.4 % Neut % (Auto) 47.6 % Lymph % (Auto) 38.7 % [place] % (Auto) 10.1 % Eos % (Auto) 2.7 % Baso % (Auto) 0.5 % Neut # (Auto) 5.07 (1.40-6.50) K/uL Lymph # (Auto) 4.11 H (1.20-3.40) K/uL [place] # (Auto) 1.07 H (0.11-0.59) K/uL Eos # (Auto) 0.29 (0.00-0.50) K/uL Baso # (Auto) 0.05 (0.00-0.20) K/uL Immature Gran # (Auto) 0.04 (0.01-0.20) K/uL PT 10.8 (9.0-12.0) Seconds INR 1.0 (0.9-1.1) POC Sodium 133 L (135-144) mmol/L Sodium 132 L (136-145) mmol/L POC Potassium 4.7 (3.3-5.0) mmol/L Potassium 4.8 (3.5-5.1) mmol/L POC Chloride 103 (101-112) mmol/L Chloride 102 (98-107) mmol/L Carbon Dioxide 20 L (21-32) mmol/L POC Total CO2 18 L (24-31) mmol/L Anion Gap 10 (3-11) POC Anion Gap 18.0 (16-25) mmol/L POC BUN 35 H (7-18) mg/dl BUN 39 H (6-23) mg/dl Creatinine 1.73 H (0.6-1.2) mg/dl POC Creatinine 2.0 H (0.6-1.3) mg/dl Est Cr Clr Drug Dosing 23.0 ml/min eGFR 28.78 BUN/Creatinine Ratio 22.5 H (10-20) Glucose 112 H (70-99(Fasting)) mg/dl POC Glucose (other) 113 H (70-99) mg/dl Lactate (0.4-2.0) mmol/L Calcium 9.0 (8.6-10.3) mg/dl POC Ioniz Calcium Jacquie 1.14 (1.12-1.32) mmol/l Total Bilirubin 0.6 (0.2-1.0) mg/dl AST 27 (13-39) U/L ALT 17 (7-52) U/L Alkaline Phosphatase 47 (34-104) U/L Troponin I High Sens 7.4 (0-14) pg/ml Total Protein 6.8 (6.0-8.3) gm/dl Albumin 3.6 (3.4-5.0) gm/dl Globulin 3.2 (2.5-4.0) gm/dl Albumin/Globulin Ratio 1.1 (0.9-2) Lipase 18 (11-82) U/L Procalcitonin 0.11 (0-0.5) ng/ml 10/08/24 Range/Units 09:01 WBC (4.8-10.8) K/ul RBC (4.20-5.40) M/uL Hgb (12.0-16.0) g/dl POC Hgb (12.0-16.0) g/dl Hct (37.0-47.0) % POC Hct (37-47) % MCV (80.0-100.0) fL MCH (25.0-34.0) pg MCHC (32.0-36.0) g/dL RDW Std Deviation (36.4-46.3) fL RDW Coeff of Emanuel (11.5-14.5) % Plt Count (130-400) K/uL MPV (9.4-12.4) fL Immature Gran % (Auto) % Neut % (Auto) % Lymph % (Auto) % [place] % (Auto) % Eos % (Auto) % Baso % (Auto) % Neut # (Auto) (1.40-6.50) K/uL Lymph # (Auto) (1.20-3.40) K/uL [place] # (Auto) (0.11-0.59) K/uL Eos # (Auto) (0.00-0.50) K/uL Baso # (Auto) (0.00-0.20) K/uL Immature Gran # (Auto) (0.01-0.20) K/uL PT (9.0-12.0) Seconds INR (0.9-1.1) POC Sodium (135-144) mmol/L Sodium (136-145) mmol/L POC Potassium (3.3-5.0) mmol/L Potassium (3.5-5.1) mmol/L POC Chloride (101-112) mmol/L Chloride (98-107) mmol/L Carbon Dioxide (21-32) mmol/L POC Total CO2 (24-31) mmol/L Anion Gap (3-11) POC Anion Gap (16-25) mmol/L POC BUN (7-18) mg/dl BUN (6-23) mg/dl Creatinine (0.6-1.2) mg/dl POC Creatinine (0.6-1.3) mg/dl Est Cr Clr Drug Dosing ml/min eGFR BUN/Creatinine Ratio (10-20) Glucose (70-99(Fasting)) mg/dl POC Glucose (other) (70-99) mg/dl Lactate 0.5 (0.4-2.0) mmol/L Calcium (8.6-10.3) mg/dl POC Ioniz Calcium Jacquie (1.12-1.32) mmol/l Total Bilirubin (0.2-1.0) mg/dl AST (13-39) U/L ALT (7-52) U/L Alkaline Phosphatase (34-104) U/L Troponin I High Sens (0-14) pg/ml Total Protein (6.0-8.3) gm/dl Albumin (3.4-5.0) gm/dl Globulin (2.5-4.0) gm/dl Albumin/Globulin Ratio (0.9-2) Lipase (11-82) U/L Procalcitonin (0-0.5) ng/ml Administered Medications Discontinued Medications Hydromorphone HCl (Hydromorphone Inj 0.5 Mg/0.5 Ml Syr) Confirm Administered Dose 0.5 mg .ROUTE .STK-MED ONE Stop: 10/08/24 07:48 Last Admin: 10/08/24 07:48 Dose: Not Given Documented By: CORINE Hydromorphone HCl (Hydromorphone Inj 0.5 Mg/0.5 Ml Syr) 0.5 mg IV NOW STA Stop: 10/08/24 07:48 Last Admin: 10/08/24 07:48 Dose: 0.5 mg Documented By: CORINE Hydromorphone HCl (Hydromorphone Inj 0.5 Mg/0.5 Ml Syr) 0.5 mg IV NOW Stop: 10/08/24 09:33 Last Admin: 10/08/24 09:36 Dose: 0.5 mg Documented By: CORINE Sodium Chloride (Nss) 1,000 mls @ 999 mls/hr IV .Q1H1M STA Stop: 10/08/24 08:05 Last Infusion: 10/08/24 08:56 Dose: Infused Documented By: Admin: 10/08/24 07:09 Dose: 999 mls/hr Documented By: CORINE Clindamycin Phosphate (Cleocin/D5w) 600 mg in 50 mls @ 100 mls/hr IV NOW ONE Stop: 10/08/24 09:12 Last Infusion: 10/08/24 10:28 Dose: Infused Documented By: Admin: 10/08/24 09:22 Dose: 100 mls/hr Documented By: CORINE Vancomycin HCl 1,500 mg/ (Sodium Chloride) 530 mls @ 200 mls/hr IV NOW ONE Stop: 10/08/24 11:21 Last Infusion: 10/08/24 12:50 Dose: Infused Documented By: Admin: 10/08/24 09:55 Dose: 200 mls/hr Documented By: CORINE Piperacillin Sod/Tazobactam Sod (Zosyn) 4.5 gm in 100 mls @ 200 mls/hr IV NOW ONE; Protocol Stop: 10/08/24 10:31 Last Infusion: 10/08/24 11:37 Dose: Infused Documented By: Admin: 10/08/24 10:59 Dose: 200 mls/hr Documented By: CORINE Ioversol (Optiray 320 125ml) 119 ml IV ONCE ONE Stop: 10/08/24 07:35 Last Admin: 10/08/24 07:34 Dose: 119 ml Documented By: VINCENZO Morphine Sulfate (Morphine Sulfate 4 Mg/Ml 1 Ml Carp\\Vial) 4 mg IV NOW STA Stop: 10/08/24 07:06 Last Admin: 10/08/24 07:10 Dose: 4 mg Documented By: CORINE Ondansetron HCl (Ondansetron Inj 2 Mg/Ml 2 Ml Vial) 4 mg IV NOW STA Stop: 10/08/24 07:06 Last Admin: 10/08/24 07:09 Dose: 4 mg Documented By: CORINE Imaging Data Radiologist's Impression: Abdomen/Pelvis CTA 10/08/24 07:06 EXAM: CT angio abdomen pelvis w con CLINICAL HISTORY: R groin pain TECHNIQUE: Contrast enhanced thin slice CT angiography scan of the abdominal aorta was performed with intravenous contrast. Angiographic images were processed, 3D MIP images were acquired for interpretation. Contiguous axial images were obtained. Reformatted coronal and sagittal images were also reviewed. If IV contrast material had not been administered, the likelihood of detecting abnormalities relevant to the patients condition would have been substantially decreased. CT scan was performed according to ALARA (as low as reasonable achievable). COMPARISON: No FINDINGS: Abdominal aorta is normal in course, calibre and opacification. Mild atherosclerotic disease in aorta and its branches. Origin of coeliac artery, superior mesenteric artery , bilateral main renal and lumbar arteries are normal with no hemodynamically significant ostial stenosis noted. Bilateral common, external and internal iliac arteries are normal in course, caliber and opacification. Solid abdominal organs including spleen, pancreas reveal no significant abnormality. A peripherally enhancing lesion of size 1.9 x 2.1cm is noted in segment VII of liver. Bilateral perinephric fat stranding. Bowel loops are grossly unremarkable. No evidence of ascites. [id number] Irregular walled hypodense necrotic collection with few air foci within /OBX.5.1.1OBX.5.1.2 of approximate size 5.1 x 6.8 x 4.6cm is noted in the right inguinal region with multiple enlarged right inguinal lymph nodes. Diffuse surrounding fat stranding. Surgical migel noted over the overlying right anterolateral pelvic wall./OBX.5.1.2/OBX.5.1 IMPRESSION: OBX.5.1OBX.5.1.11. Irregular walled hypodense necrotic collection with few internal air foci in the right inguinal region with multiple right inguinal lymphadenopathy /OBX.5.1.1OBX.5.1.2 diffuse surrounding fat stranding, likely suggestive of necrotising fascitis./OBX.5.1.2/OBX.5.1 2. A peripherally enhancing lesion of size 1.9 x 2.1cm in segment VII of liver, likely a hemangioma (venous malformation). 3. Bilateral perinephric fat stranding, suggestive of acute kidney injury. Suggest- Serum creatinine correlation. 4. Mild atherosclerotic disease in aorta and its branches. No hemodynamically significant stenosis. Electronically signed by Eleazar Moore 10-08-2024 08:29 AM Lower Extremity CTA 10/08/24 07:06 EXAM: CT angio LE RT w inc wo if don CLINICAL HISTORY: R groin pain s/p recent vascular surgery TECHNIQUE: Contrast enhanced thin slice CT angiography scan of the right lower extremity was performed with intravenous contrast. Angiographic images were processed, 3D MIP images were acquired for interpretation. Contiguous axial images were obtained. Reformatted coronal and sagittal images were also reviewed. If IV contrast material had not been administered, the likelihood of detecting abnormalities relevant to the patients condition would have been substantially decreased. CT scan was performed according to ALARA (as low as reasonable achievable). COMPARISON: No FINDINGS: RIGHT LOWER LIMB: common femoral and profunda femoris arteries are normal in course, calibre and opacification with no hemodynamically significant stenosis seen. Patent vascular graft is seen along superficial femoral artery. Streak artifacts due to knee replacement prosthesis seen obscuring proximal popliteal artery. Distal Popliteal artery and tibioperoneal arteries are normal in course, calibre and opacification with no hemodynamically significant stenosis. Anterior tibial , posterior tibial and peroneal arteries are normal in course, calibre and opacification. Dorsalis pedis artery is normal in course, calibre and opacification. Good distal run off. OBX.5.1OBX.5.1.1 Irregular walled hypodense necrotic collection with few air foci within /OBX.5.1.1OBX.5.1.2 of approximate size 5.1 x 6.8 x 4.6cm is noted in the right inguinal region with multiple enlarged right inguinal lymph nodes. Diffuse surrounding fat stranding. Surgical migel noted over the overlying right anterolateral pelvic wall./OBX.5.1.2/OBX.5.1 IMPRESSION: OBX.5.1OBX.5.1.11. Irregular walled hypodense necrotic collection with few internal air foci in the right inguinal region with multiple right inguinal lymphadenopathy /OBX.5.1.1OBX.5.1.2 diffuse surrounding fat stranding, likely suggestive of necrotising fascitis./OBX.5.1.2/OBX.5.1 2. No hemodynamically significant stenosis in right lower limb arteries. Electronically signed by Eleazar Moore 10-08-2024 08:42 AM Discharge Plan Visit Data Chief Complaint: Bleeding Stated Complaint: PAIN, BLEEDING WOUND ON LEG ED Provider: Mekhi Khalil Discharge Problem: Surgical wound infection Discharge Instructions Interventions: ED Discharge Assessment Last Done: 10/08/24 13:00
[2024-10-08 07:19] LABS: Basophils # (auto) 0.05 K/uL (0.00-0.20); Basophils % (auto) 0.5 %; Eosinophils # (auto) 0.29 K/uL (0.00-0.50); Eosinophils % (auto) 2.7 %; Hematocrit (blood only) 29.9 % (37.0-47.0); Hemoglobin 9.6 g/dl (12.0-16.0); Immature Granulocytes # (auto) 0.04 K/uL (0.01-0.20); Immature Granulocytes % (auto) 0.4 %; Lymphocytes # (auto) 4.11 K/uL (1.20-3.40); Lymphocytes % (auto) 38.7 %; Mean Corpuscular Hemoglobin 28.5 pg (25.0-34.0); Mean Corpuscular Hgb Conc 32.1 g/dL (32.0-36.0); Mean Corpuscular Volume 88.7 fL (80.0-100.0); Mean Platelet Volume 9.9 fL (9.4-12.4); Monocytes # (auto) 1.07 K/uL (0.11-0.59); Monocytes % (auto) 10.1 %; Neutrophils # (auto) 5.07 K/uL (1.40-6.50); Neutrophils % (auto) 47.6 %; Platelet Count 365 K/uL (130-400); RDW Coefficient of Variation 14.5 % (11.5-14.5); RDW Standard Deviation 46.8 fL (36.4-46.3); Red Blood Count 3.37 M/uL (4.20-5.40); White Blood Count 10.63 K/ul (4.8-10.8)
[2024-10-08 07:26] LABS: iSTAT Hemoglobin 9.9 g/dl (12.0-16.0); iSTAT Ionized Calcium 1.14 mmol/l (1.12-1.32); iSTAT Potassium 4.7 mmol/L (3.3-5.0)
[2024-10-08] MEDS: OPTIRAY 320 125ml IV ONE (07:34)
[2024-10-08 07:39] LABS: Albumin Globulin Ratio 1.1 (0.9-2); Albumin Level 3.6 gm/dl (3.4-5.0); BUN Creatinine Ratio 22.5 (10-20); Bilirubin,Total 0.6 mg/dl (0.2-1.0); Globulin 3.2 gm/dl (2.5-4.0); Potassium 4.8 mmol/L (3.5-5.1); Total Protein 6.8 gm/dl (6.0-8.3)
[2024-10-08 07:46] LABS: Troponin I High Sensitivity 7.4 pg/ml (0-14)
[2024-10-08 07:47] LABS: Prothrombin Time 10.8 Seconds (9.0-12.0)
[2024-10-08] MEDS: HYDROmorphone INJ 0.5 MG/0.5 ML SYR IV STA ×2 (07:48→09:36)
[2024-10-08] MEDS: HYDROmorphone INJ 0.5 MG/0.5 ML SYR ONE (07:48)
--- NOTE | 2024-10-08 08:29 | CT Scan Report ---
EXAM: CT angio abdomen pelvis w con CLINICAL HISTORY: R groin pain TECHNIQUE: Contrast enhanced thin slice CT angiography scan of the abdominal aorta was performed with intravenous contrast. Angiographic images were processed, 3D MIP images were acquired for interpretation. Contiguous axial images were obtained. Reformatted coronal and sagittal images were also reviewed. If IV contrast material had not been administered, the likelihood of detecting abnormalities relevant to the patients condition would have been substantially decreased. CT scan was performed according to ALARA (as low as reasonable achievable). COMPARISON: No FINDINGS: Abdominal aorta is normal in course, calibre and opacification. Mild atherosclerotic disease in aorta and its branches. Origin of coeliac artery, superior mesenteric artery , bilateral main renal and lumbar arteries are normal with no hemodynamically significant ostial stenosis noted. Bilateral common, external and internal iliac arteries are normal in course, caliber and opacification. Solid abdominal organs including spleen, pancreas reveal no significant abnormality. A peripherally enhancing lesion of size 1.9 x 2.1cm is noted in segment VII of liver. Bilateral perinephric fat stranding. Bowel loops are grossly unremarkable. No evidence of ascites. OBX.5.1OBX.5.1.1 Irregular walled hypodense necrotic collection with few air foci within /OBX.5.1.1OBX.5.1.2 of approximate size 5.1 x 6.8 x 4.6cm is noted in the right inguinal region with multiple enlarged right inguinal lymph nodes. Diffuse surrounding fat stranding. Surgical migel noted over the overlying right anterolateral pelvic wall./OBX.5.1.2/OBX.5.1 IMPRESSION: OBX.5.1OBX.5.1.11. Irregular walled hypodense necrotic collection with few internal air foci in the right inguinal region with multiple right inguinal lymphadenopathy /OBX.5.1.1OBX.5.1.2 diffuse surrounding fat stranding, likely suggestive of necrotising fascitis./OBX.5.1.2/OBX.5.1 2. A peripherally enhancing lesion of size 1.9 x 2.1cm in segment VII of liver, likely a hemangioma (venous malformation). 3. Bilateral perinephric fat stranding, suggestive of acute kidney injury. Suggest- Serum creatinine correlation. 4. Mild atherosclerotic disease in aorta and its branches. No hemodynamically significant stenosis. Electronically signed by Eleazar Moore-21-2025 08:29 AM
[2024-10-08] MEDS ORDERED: VANCOMYCIN CONSULT ACTIVE PRN (08:43)
--- NOTE | 2024-10-08 08:43 | CT Scan Report ---
EXAM: CT angio LE RT w inc wo if don CLINICAL HISTORY: R groin pain s/p recent vascular surgery TECHNIQUE: Contrast enhanced thin slice CT angiography scan of the right lower extremity was performed with intravenous contrast. Angiographic images were processed, 3D MIP images were acquired for interpretation. Contiguous axial images were obtained. Reformatted coronal and sagittal images were also reviewed. If IV contrast material had not been administered, the likelihood of detecting abnormalities relevant to the patients condition would have been substantially decreased. CT scan was performed according to ALARA (as low as reasonable achievable). COMPARISON: No FINDINGS: RIGHT LOWER LIMB: common femoral and profunda femoris arteries are normal in course, calibre and opacification with no hemodynamically significant stenosis seen. Patent vascular graft is seen along superficial femoral artery. Streak artifacts due to knee replacement prosthesis seen obscuring proximal popliteal artery. Distal Popliteal artery and tibioperoneal arteries are normal in course, calibre and opacification with no hemodynamically significant stenosis. Anterior tibial , posterior tibial and peroneal arteries are normal in course, calibre and opacification. Dorsalis pedis artery is normal in course, calibre and opacification. Good distal run off. OBX.5.1OBX.5.1.1 Irregular walled hypodense necrotic collection with few air foci within /OBX.5.1.1OBX.5.1.2 of approximate size 5.1 x 6.8 x 4.6cm is noted in the right inguinal region with multiple enlarged right inguinal lymph nodes. Diffuse surrounding fat stranding. Surgical migel noted over the overlying right anterolateral pelvic wall./OBX.5.1.2/OBX.5.1 IMPRESSION: OBX.5.1OBX.5.1.11. Irregular walled hypodense necrotic collection with few internal air foci in the right inguinal region with multiple right inguinal lymphadenopathy /OBX.5.1.1OBX.5.1.2 diffuse surrounding fat stranding, likely suggestive of necrotising fascitis./OBX.5.1.2/OBX.5.1 2. No hemodynamically significant stenosis in right lower limb arteries. Electronically signed by Eleazar Moore 10-08-2024 08:42 AM
--- NOTE | 2024-10-08 09:15 | Electrocardiogram Report ---
Test Reason : Blood Pressure : */* mmHG Vent. Rate : 69 BPM Atrial Rate : 69 BPM P-R Int : 176 ms QRS Dur : 68 ms QT Int : 402 ms P-R-T Axes : 66 -10 16 degrees QTcB Int : 430 ms Sinus rhythm with Premature atrial complexes Otherwise normal ECG When compared with ECG of 01-Oct-2024 08:50, No significant change was found Confirmed by Obi Greenberg ([id number]) on 10/08/2024 9:15:22 AM Referred By: Confirmed By: Obi Greenberg
[2024-10-08] MEDS: CLINDAMYCIN/D5W 600 MG/50 ML BAG IV ONE (09:22)
[2024-10-08] MEDS: VANCOMYCIN HCL 1,500 MG in SODIUM CHLORIDE 0.9% 500 ML IV ONE (09:55)
[2024-10-08] MEDS: PIPERACILLIN/TAZOBACTAM 4.5 GM/100 ML BAG IV ONE (10:59)
--- NOTE | 2024-10-08 11:18 | Surgery Consultation ---
<Statement entered by Jordan Calzada, DO - 10/08/24 13:39> I have seen and examined this patient and I agree with this plan. Dr. Glover is aware of the patient to provide ongoing follow up during her admission. General surgery will sign off at this time. Date of Consultation October 08, 2024 Assessment & Plan (1) S/P vascular surgery: Patient with c/o right groin pain , is s/p Right Groin Pseudoaneurysm Repair with Dr Glover on 10/01/24. CT scan of abd/pelvis showing concern for "Irregular walled hypodense necrotic collection with few air foci within /OBX.5.1.1OBX.5.1.2 of approximate size 5.1 x 6.8 x 4.6cm is noted in the right inguinal region with multiple enlarged right inguinal lymph nodes. Diffuse surrounding fat stranding. Surgical migel noted over the overlying right anterolateral pelvic wall." On exam patient appears uncomfortable, however in no acute distress, VSS , afebrile , hr 74, BP 112/58. WBC 10, H/H 9.6/29.9. Right groin is not showing any signs of active bleeding, or drainage. Site does have some surrounding erythema and ecchymosis. Right leg and foot appear to be perfusing without signs of cyanotic changes. Patient takes Plavix and Xarelto and is likely suffering from a post operative hematoma, given she is afebrile, and with wbc wnl, necrotizing fasciitis is less likely at present. Would recommend admitting patient to the hospital, monitor WBC and H/H, IV Analgesics PRN, consult vascular surgery for possible evacuation of post operative hematoma/ recommendations on blood thinners. General surgery will follow from the peripheral, please call with questions/concerns. Patient was seen and examined with Dr Calzada and she agreed with above. History of Present Illness Reason for Consultation: necrotizing fascitis right post operative groin site Requesting Physician: Dr Khalil History of Present Illness Patient is a 84 yo female with PMH [place], arthritis, insomnia, gout, GERD, DM type 2, PVD, anemia, anxiety, HTN, HLD, COPD, asthma, brain aneurysm, PTSD that presented to the [facility] ER with c/o right groin pain that started last Tuesday. Patient was recently admitted to [facility] and underwent a right R groin pseudoaneurysm repair on 10/01/[address] Glover and was discharge on 10/05/24 with a wound vac in place. The patient daughter is present and reports that while at home they noticed that the would vac started having and increase in bloody drainage. She took her to [facility] ER on Tuesday and they noted a fluid collection on imaging. The patient was given an increase in her oral pain medication and instructed to follow up as an outpatient with vascular surgeon. Yesterday the patient states that she started having an increase in pain and drainage from post surgical wound and was instructed to remove the wound vac by an oncall provider. Today the patient is rating pain as a 8/10 in right groin. She denies cp, sob, fever chills, and bleeding from groin presently. A CT scan that is showing concern for "Irregular walled hypodense necrotic collection with few internal air foci in the right inguinal region with multiple right inguinal lymphadenopathy" for which general surgery was consulted. Allergies Allergy/AdvReac Type Severity Reaction Status Date / Time Penicillins Allergy Intermediate hives Verified 10/08/24 08:41 Sulfa (Sulfonamide Allergy Intermediate hives Verified 10/08/24 08:41 Antibiotics) roflumilast [From Dalires] AdvReac Mild upset Verified 10/08/24 08:41 stomach Home Medications Medication Instructions Recorded Confirmed Type Medical Marijuana 1 dose inhalation HS PRN Sleep 09/28/24 10/08/24 History Mood Booster 200 mg PO HS 09/28/24 10/08/24 History amlodipine 5 mg tablet 5 mg PO QAM 09/28/24 10/08/24 History atorvastatin 40 mg tablet (Lipitor) 40 mg PO HS 09/28/24 10/08/24 History calcium 600 mg (as 1 tab PO QAM 09/28/24 10/08/24 History carbonate)-vitamin D3 5 mcg (200 unit) tablet clopidogrel 75 mg tablet (Plavix) 75 mg PO QAM 09/28/24 10/08/24 History cyclosporine 0.05 % eye drops 1 drp ophthalmic (eye) Q12H 09/28/24 10/08/24 History febuxostat 40 mg tablet (Uloric) 40 mg PO QAM 09/28/24 10/08/24 History fluticasone furoate 100 1 inh inhalation DAILY 09/28/24 10/08/24 History mcg/actuation blister powder for inhalation (Arnuity Ellipta) gabapentin 300 mg capsule 300 mg PO BID 09/28/24 10/08/24 History hydrochlorothiazide 25 mg tablet 25 mg PO QAM 09/28/24 10/08/24 History levothyroxine 50 mcg tablet 50 mcg PO QAM 09/28/24 10/08/24 History (Synthroid) lisinopril 40 mg tablet 40 mg PO QAM 09/28/24 10/08/24 History melatonin 5 mg tablet 5 mg PO HS 09/28/24 10/08/24 History rivaroxaban 2.5 mg tablet (Xarelto) 2.5 mg PO BID 09/28/24 10/08/24 History trazodone 100 mg tablet 200 mg PO HS 09/28/24 10/08/24 History vibegron 75 mg tablet (Gemtesa) 75 mg PO QAM 09/28/24 10/08/24 History oxycodone-acetaminophen 5 mg-325 1 tab PO Q4H PRN pain #30 tabs 10/05/2409/19 Rx mg tablet (Percocet) oxycodone 10 mg tablet 10 mg PO QID PRN Pain 10/08/24 10/08/24 History Patient History Medical History Hearing deficit [place]a Dry eye syndrome Medical marijuana use Insomnia History of chronic lymphocytic leukemia no treatment Hx of gout Arthritis Mixed stress and urge urinary incontinence GERD (gastroesophageal reflux disease) Diabetes mellitus, type 2 diet controlled (no meds "my choice") Hypothyroidism PVD (peripheral vascular disease) Anemia PTSD (post-traumatic stress disorder) Panic attacks follows with pysch>every week History of anxiety Peripheral neuropathy Brain aneurysm 37 years ago>cont. to have aphasia (clamped at [facility]) Cardiac murmur Dr. Diaz cards Hypertension Hyperlipidemia Chronic obstructive pulmonary disease Asthma "only has daily inhaler">controlled Surgical History H/O foot surgery needle removed from foot History of ankle surgery right/left History of total knee replacement right/left H/O breast biopsy benign History of amputation right first 3 toes History of esophagogastroduodenoscopy (EGD) History of colonoscopy History of hysterectomy History of cholecystectomy History of appendectomy H/O vascular surgery 4 total stents/1 balloon in legs (done by Dr. Quinn Diaz). last done 08/29/24 at [facility] History of tooth extraction History of tonsillectomy History of cataract surgery right/left Family History Other No family history of adverse response to anesthesia Social History Smoking Status: Never smoker Tobacco Type: Cigarettes Second Hand Exposure: No; Do You Dip or Chew Tobacco: No; Hx Alcohol Use: No Preferred Language: Lao Communication Ability: Effective Project Management Specialist Required: No Beliefs That Will Affect Care: None Current Living Situation: Alone Feels Safe at Home: Yes Assistive Devices: Walker Review of Systems Constitutional: no fever and no chills Cardiovascular: no chest pain Gastrointestinal: no nausea and no vomiting Integumentary: + wounds Physical Exam Constitutional: cooperative; no acute distress and + uncomfortable Respiratory: normal respiratory effort; no respiratory distress Cardiovascular: Rate/Rhythm: regular rate Gastrointestinal (Abdomen): Right groin post surgical site, erythema , ecchymosis no active bleeding Results & Data Vital Signs (Past 12 Hours) Vital Signs Temp Pulse Resp BP Pulse Ox O2 Del Method O2 Flow Rate 10/08/24 09:33 68 13 119/65 94 Nasal Cannula 2 10/08/24 09:30 73 15 119/65 97 10/08/24 09:00 72 12 108/92 98 10/08/24 08:30 82 12 103/49 L 99 10/08/24 08:13 83 10/08/24 08:09 83 17 109/50 L 98 10/08/24 07:45 74 17 127/69 97 10/08/24 06:59 98.8 F 78 20 168/74 H 99 Room Air Diagnostic Findings [place], [place] [phone] CT Scan Report Patient: ELIGIO HOGAN Admit Date: 10/08/24 MR#: [id number] Address1: [address] [place] [address] Acct ID:[id number] Address2: [address] Date: 1940 [facility] Zip: [place] [address] Age: 84 Location: ED Sex: F Room/Bed: Att Phy: Diagnosis: PAIN, BLEEDING WOUND ON LEG [place] Phy: Berry Garcia D.O. Service Date: 10/08/24 [facility] Phy: Interpreting Phy: Eleazar Cano MDAdmit Phy: Ordering Phy: Mekhi Khalil, cc: ~ EXAM: CT angio abdomen pelvis w con CLINICAL HISTORY: R groin pain TECHNIQUE: Contrast enhanced thin slice CT angiography scan of the abdominal aorta was performed with intravenous contrast. Angiographic images were processed, 3D MIP images were acquired for interpretation. Contiguous axial images were obtained. Reformatted coronal and sagittal images were also reviewed. If IV contrast material had not been administered, the likelihood of detecting abnormalities relevant to the patients condition would have been substantially decreased. CT scan was performed according to ALARA (as low as reasonable achievable). COMPARISON: No FINDINGS: Abdominal aorta is normal in course, calibre and opacification. Mild atherosclerotic disease in aorta and its branches. Origin of coeliac artery, superior mesenteric artery , bilateral main renal and lumbar arteries are normal with no hemodynamically significant ostial stenosis noted. Bilateral common, external and internal iliac arteries are normal in course, caliber and opacification. Solid abdominal organs including spleen, pancreas reveal no significant abnormality. A peripherally enhancing lesion of size 1.9 x 2.1cm is noted in segment VII of liver. Bilateral perinephric fat stranding. Bowel loops are grossly unremarkable. No evidence of ascites. OBX.5.1OBX.5.1.1 Irregular walled hypodense necrotic collection with few air foci within /OBX.5.1.1OBX.5.1.2 of approximate size 5.1 x 6.8 x 4.6cm is noted in the right inguinal region with multiple enlarged right inguinal lymph nodes. Diffuse surrounding fat stranding. Surgical migel noted over the overlying right anterolateral pelvic wall./OBX.5.1.2/OBX.5.1 IMPRESSION: OBX.5.1OBX.5.1.11. Irregular walled hypodense necrotic collection with few internal air foci in the right inguinal region with multiple right inguinal lymphadenopathy /OBX.5.1.1OBX.5.1.2 diffuse surrounding fat stranding, likely suggestive of necrotising fascitis./OBX.5.1.2/OBX.5.1 2. A peripherally enhancing lesion of size 1.9 x 2.1cm in segment VII of liver, likely a hemangioma (venous malformation). 3. Bilateral perinephric fat stranding, suggestive of acute kidney injury. Suggest- Serum creatinine correlation. 4. Mild atherosclerotic disease in aorta and its branches. No hemodynamically significant stenosis. Electronically signed by Eleazar Cano 10-08-2024 08:29 AM Dictated: 10/08/24 0727 Transcribed: Results CBC w Diff Results: RBC 3.37 M/uL (4.20-5.40) L 10/08/24 WBC 10.63 K/ul (4.8-10.8) 10/08/24 Hgb 9.6 g/dl (12.0-16.0) L 10/08/24 Hct 29.9 % (37.0-47.0) L 10/08/24 MCV 88.7 fL (80.0-100.0) 10/08/24 MCH 28.5 pg (25.0-34.0) 10/08/24 MCHC 32.1 g/dL (32.0-36.0) 10/08/24 RDW Standard Deviation 46.8 fL (36.4-46.3) H 10/08/24 RDW Coefficient of Variation 14.5 % (11.5-14.5) 10/08/24 Plt Count 365 K/uL (130-400) 10/08/24 MPV 9.9 fL (9.4-12.4) 10/08/24 Neutrophils (%) (Auto) 47.6 % 10/08/24 Lymphocytes (%) (Auto) 38.7 % 10/08/24 Monocytes # (Auto) 1.07 K/uL (0.11-0.59) H 10/08/24 Eosinophils # (Auto) 0.29 K/uL (0.00-0.50) 10/08/24 Immature Granulocyte % (Auto) 0.4 % 10/08/24 Neutrophils # (Auto) 5.07 K/uL (1.40-6.50) 10/08/24 Lymphocytes # (Auto) 4.11 K/uL (1.20-3.40) H 10/08/24 Monocytes # (Auto) 1.07 K/uL (0.11-0.59) H 10/08/24 Eosinophils # (Auto) 0.29 K/uL (0.00-0.50) 10/08/24 Basophils # (Auto) 0.05 K/uL (0.00-0.20) 10/08/24 Immature Granulocyte # (Auto) 0.04 K/uL (0.01-0.20) 5 Polychromasia 1+ 10/02/24 Ovalocytes 1+ 10/02/24 PG Care Time/CCT Total # of Minutes Spent Total Time Spent with Patient: Total time spent is greater than 50% in coordination of care (as documented) at patient's floor/unit and/or counseling patient: Coding Level of Care Code 07725 INT INP/OBS CARE 1/40MIN Diagnoses S/P vascular surgery Z98.890
--- NOTE | 2024-10-08 12:01 | History & Physical Report ---
Date of Service October 08, 2024 Assessment & Plan (1) Postoperative wound infection: Plan: She recently underwent right inguinal pseudoaneurysm repair on October [address] scan reveals a 5 x 6 x 4 cm fluid collection that may simply represent a postoperative seroma. She has been seen by general surgery and no intervention was recommended. Vascular surgery consultation is pending. She received clindamycin, vancomycin, Zosyn in the ED. She will remain on intravenous clindamycin and vancomycin. Serial labs for now. (2) Essential hypertension: Plan: Currently stable. Continue current medical management (3) Type 2 diabetes mellitus: Plan: ADA diet. Sliding scale coverage for now (4) COPD (chronic obstructive pulmonary disease): Plan: Stable. DuoNebs as needed Plan To be determined History of Present Illness Chief Complaint: Recent right inguinal pseudoaneurysm repair with apparent postoperative wound infection Primary Care Provider: Berry Garcia 84-year-old white female who was recently hospitalized with right femoral pseudoaneurysm repair on October 01 and subsequently discharged on October 05 with a wound VAC. She now has evidence of infection of the right inguinal area and pain. CT scan reveals a 5 to by 6 x 4 cm fluid collection associated with the infection but she has no leukocytosis and no current fever. She has been seen by general surgery while in the ED and no intervention was recommended. Vascular surgery consultation is requested and pending. She received intravenous clindamycin vancomycin and Zosyn in the ED. She will continue on clindamycin and vancomycin on admission. She is admitted for further evaluation and treatment Allergies Allergy/AdvReac Type Severity Reaction Status Date / Time Penicillins Allergy Intermediate hives Verified 10/08/24 08:41 Sulfa (Sulfonamide Allergy Intermediate hives Verified 10/08/24 08:41 Antibiotics) roflumilast [From Daliresp] AdvReac Mild upset Verified 10/08/24 08:41 stomach Home Medications Medication Instructions Recorded Confirmed Type Medical Marijuana 1 dose inhalation HS PRN Sleep 09/28/24 10/08/24 History Mood Booster 200 mg PO HS 09/28/24 10/08/24 History amlodipine 5 mg tablet 5 mg PO QAM 09/28/24 10/08/24 History atorvastatin 40 mg tablet (Lipitor) 40 mg PO HS 09/28/24 10/08/24 History calcium 600 mg (as 1 tab PO QAM 09/28/24 10/08/24 History carbonate)-vitamin D3 5 mcg (200 unit) tablet clopidogrel 75 mg tablet (Plavix) 75 mg PO QAM 09/28/24 10/08/24 History cyclosporine 0.05 % eye drops 1 drp ophthalmic (eye) Q12H 09/28/24 10/08/24 History febuxostat 40 mg tablet (Uloric) 40 mg PO QAM 09/28/24 10/08/24 History fluticasone furoate 100 1 inh inhalation DAILY 09/28/24 10/08/24 History mcg/actuation blister powder for inhalation (Arnuity Ellipta) gabapentin 300 mg capsule 300 mg PO BID 09/28/24 10/08/24 History hydrochlorothiazide 25 mg tablet 25 mg PO QAM 09/28/24 10/08/24 History levothyroxine 50 mcg tablet 50 mcg PO QAM 09/28/24 10/08/24 History (Synthroid) lisinopril 40 mg tablet 40 mg PO QAM 09/28/24 10/08/24 History melatonin 5 mg tablet 5 mg PO HS 09/28/24 10/08/24 History rivaroxaban 2.5 mg tablet (Xarelto) 2.5 mg PO BID 09/28/24 10/08/24 History trazodone 100 mg tablet 200 mg PO HS 09/28/24 10/08/24 History vibegron 75 mg tablet (Gemtesa) 75 mg PO QAM 09/28/24 10/08/24 History oxycodone-acetaminophen 5 mg-325 1 tab PO Q4H PRN pain #30 tabs 10/05/24 10/08/24 Rx mg tablet (Percocet) oxycodone 10 mg tablet 10 mg PO QID PRN Pain 10/08/24 10/08/24 History Past Med/Surg History Problem List (Updated 10/08/24 @ 11:59 by Daniel Sneed MD) COPD (chronic obstructive pulmonary disease) Type 2 diabetes mellitus Essential hypertension Postoperative wound infection Acute blood loss as cause of postoperative anemia S/P vascular surgery Pseudoaneurysm of femoral artery following procedure Encounter for pre-operative examination Medical History Hearing deficit [place] Dry eye syndrome Medical marijuana use Insomnia History of chronic lymphocytic leukemia no treatment Hx of gout Arthritis Mixed stress and urge urinary incontinence GERD (gastroesophageal reflux disease) Diabetes mellitus, type 2 diet controlled (no meds "my choice") Hypothyroidism PVD (peripheral vascular disease) Anemia PTSD (post-traumatic stress disorder) Panic attacks follows with pysch>every week History of anxiety Peripheral neuropathy Brain aneurysm 37 years ago>cont. to have aphasia (clamped at [facility]) Cardiac murmur Dr. Diaz cards Hypertension Hyperlipidemia Chronic obstructive pulmonary disease Asthma "only has daily inhaler">controlled Surgical History H/O foot surgery needle removed from foot History of ankle surgery right/left History of total knee replacement right/left H/O breast biopsy benign History of amputation right first 3 toes History of esophagogastroduodenoscopy (EGD) History of colonoscopy History of hysterectomy History of cholecystectomy History of appendectomy H/O vascular surgery 4 total stents/1 balloon in legs (done by Dr. Quinn Diaz). last done 08/29/24 at [facility] History of tooth extraction History of tonsillectomy History of cataract surgery right/left Family History Other No family history of adverse response to anesthesia Social History Smoking Status: Never smoker Tobacco Type: Cigarettes Second Hand Exposure: No; Do You Dip or Chew Tobacco: No; Hx Alcohol Use: No Preferred Language: Welsh Communication Ability: Effective Process Planner Required: No Beliefs That Will Affect Care: None Current Living Situation: Alone Feels Safe at Home: Yes Assistive Devices: Walker Review of Systems 2 Review of Systems: Constitutionalno fever or chills ENTno blurred vision, no double vision, no epistaxis, no sore throat Respiratoryno cough, no wheezing, no shortness of breath Cardiacno palpitations, no chest pain, no syncope Javier nausea, vomiting, diarrhea, melena, hematochezia GUno urinary retention, no urinary incontinence, no dysuria, no hematuria Musculoskeletalno joint pain, no muscle tenderness Skintenderness, swelling, erythema along the stapled surgical site in the right groin region Neurono isolated weakness, no paresthesia, no weakness Psychno depression, no anxiety Physical Exam 2 Physical Exam: General-alert and oriented x3, no fever, no chills HEENT-head atraumatic and normocephalic, pupils equal and reactive to light, extraocular muscles intact Neck-no lymphadenopathy or thyromegaly, trachea midline Chest-clear to auscultation. No rales, wheezing or rhonchi Cardiac-regular rate and rhythm, normal S1 and S2 Abdomen-normal bowel sounds, no hepatosplenomegaly Skintenderness, swelling, erythema along the stapled surgical site in the right groin region Extremities-no cyanosis, clubbing, or edema Neuro-cranial nerves II through XII intact, motor and sensory function within normal limits, strength symmetrical, no focal deficits Psych-normal affect, normal mood Results & Data Results & Data Vital Signs (Past 12 Hours) Vital Signs Temp Pulse Resp BP Pulse Ox O2 Del Method O2 Flow Rate 10/08/24 11:36 65 18 126/61 100 Nasal Cannula 2 10/08/24 11:00 76 19 112/58 L 99 10/08/24 11:00 74 17 112/58 L 100 Nasal Cannula 2 10/08/24 10:24 67 12 135/73 98 10/08/24 09:33 68 13 119/65 94 Nasal Cannula 2 10/08/24 09:30 73 15 119/65 97 10/08/24 09:00 72 12 108/92 98 10/08/24 08:30 82 12 103/49 L 99 10/08/24 08:13 83 10/08/24 08:09 83 17 109/50 L 98 10/08/24 07:45 74 17 127/69 97 10/08/24 06:59 37.1 C 78 20 168/74 H 99 Room Air Laboratory Results 10/08/24 07:07 10/08/24 07:07 Code Status & VTE Plan Code Status Full code PG Care Time/CCT Total # of Minutes Spent Total Time Spent with Patient: Total time spent is greater than 50% in coordination of care (as documented) at patient's floor/unit and/or counseling patient: Coding Level of Care Code 20350 INT INP/OBS CARE 3/75MIN Diagnoses Postoperative wound infection T81.49XA Essential hypertension I10 Type 2 diabetes mellitus E11.9 COPD (chronic obstructive pulmonary disease) J44.9
[2024-10-08] MEDS ORDERED: ONDANSETRON INJ 2 MG/ML 2 ML VIAL IV PRN (13:19)
[2024-10-08] MEDS ORDERED: GLUCAGON FOR INJ 1 MG VIAL SQ PRN (13:19)
[2024-10-08] MEDS ORDERED: ALBUT/IPRATROP 3MG/0.5MG NEB 3 ML VIAL NEB PRN (13:19)
[2024-10-08] MEDS ORDERED: CARBOHYDRATES FOR HYPOGLYCEMIA PO PRN (13:19)
[2024-10-08] MEDS ORDERED: GLUCOSE 10 TAB/TUBE PO PRN (13:19)
[2024-10-08] MEDS ORDERED: DEXTROSE 50% 50 ML SYRINGE IV PRN (13:19)
[2024-10-08] MEDS ORDERED: GLUCOSE 40% GEL 15 GM TUBE PO PRN (13:19)
[2024-10-08] MEDS ORDERED: ARTIFICIAL TEARS OP PRN (13:29)
[2024-10-08] MEDS: HYDROmorphone INJ 0.5 MG/0.5 ML SYR IV PRN ×2 (13:43→23:04)
--- NOTE | 2024-10-08 14:01 | Pharmacy Report ---
Pharmacy PK ABX Note - Date of Service October 08, 2024 - Assessment and Plan Assessment 84 year old F receiving Vancomycin and Clindamycin for empiric treatment of skin and soft tissue infection. * Day #1 of antimicrobial therapy. Underwent a right groin pseudoaneurysm repair with Dr. Glover on 10/01/24. * Received Vancomycin, Zosyn, and Clindamycin in the ED. Vancomycin and Clindamycin being continued. Blood cultures pending. * CT of groin showed a fluid collection, concern for necrotizing fasciitis. Surgery consulted and feel this is less likely. Awaiting vascular surgery input. * SCr is 1.73 mg/dL, above baseline of 1.40 mg/dL, likely NICHOLE. Will order an early level with expectation that NICHOLE resolves in the coming days. Plan Vancomycin * Loading dose: 1500 mg IV x 1 * Maintenance dose: 750 mg IV every 24 hours * Regimen is predicted to achieve target AUC/MIKE of 400-600 mg/L.hr * Random level ordered for: 10/09/24 Clindamycin * 600 mg IV every 8 hours Pharmacy will continue to follow and will adjust dose/frequency as necessary. Thank you. Pharmacy has transitioned to AUC monitoring for vancomycin. AUC/MIKE is the preferred PK/PD target and is associated with decreased risk of nephrotoxicity compared to traditional trough targets.
[2024-10-08] MEDS: ACETAMINOPHEN 325 MG TAB PO PRN (15:59)
[2024-10-08] MEDS: HYDROmorphone INJ 1 MG/ML SYRINGE IV STA ×2 (17:18→19:26)
[2024-10-08] MEDS: INSULIN ASPART PER UNIT CHARGE SC SCH (17:23)
[2024-10-08] MEDS: CLINDAMYCIN/D5W 600 MG/50 ML BAG IV SCH (17:25)
[2024-10-08] MEDS: traZODone HCL 100 MG TAB PO SCH (19:28)
[2024-10-08] MEDS: ATORVASTATIN 40 MG TAB PO SCH (19:29)
[2024-10-08] MEDS: GABAPENTIN 300 MG CAP PO SCH (19:29)
[2024-10-08] MEDS: MELATONIN 3 MG TAB PO PRN (19:30)
[2024-10-08] MEDS: LORazepam 0.5 MG TAB PO STA (20:39)
[2024-10-09 03:22] LABS: Appearance Urine Clear (Clear); Bilirubin Urine Negative (Negative); Blood Urine Negative (Negative); Color Urine Yellow; Glucose Urine UA Negative (Negative); Ketones Urine Negative (Negative); Leukocyte Esterase Urine Negative (Negative); Nitrite Urine Negative (Negative); Protein Urine Negative (Negative); Specific Gravity Urine 1.026 (1.000-1.030); Urobilinogen Urine Negative (Negative); pH Urine 5.5 (4.5-7.5)
[2024-10-09 05:33] LABS: Creatinine Clr Calc Pharmacy 23.6 ml/min
[2024-10-09] MEDS: LEVOTHYROXINE SODIUM 50 MCG TABLET PO SCH (05:45)
--- NOTE | 2024-10-09 07:47 | Pharmacy Report ---
Pharmacy PK ABX Note - Date of Service October 09, 2024 - Assessment and Plan Assessment 10/09: Reviewed vancomycin level, will continue to dose per levels for now since [id number] predicting subtherapeutic. Based on serum creatine changes, may be able to schedule dosing after 48 hours or steady state arrival. Blood cultures pending. 10/08: 84 year old F receiving Vancomycin and Clindamycin for empiric treatment of skin and soft tissue infection. * Day #1 of antimicrobial therapy. Underwent a right groin pseudoaneurysm repair with Dr. Glover on 10/01/24. * Received Vancomycin, Zosyn, and Clindamycin in the ED. Vancomycin and Clindamycin being continued. Blood cultures pending. * CT of groin showed a fluid collection, concern for necrotizing fasciitis. Surgery consulted and feel this is less likely. Awaiting vascular surgery input. * SCr is 1.73 mg/dL, above baseline of 1.40 mg/dL, likely NICHOLE. Will order an early level with expectation that NICHOLE resolves in the coming days. Plan Vancomycin * Loading dose: 1500 mg IV x 1 * Based on level 9.5mcg/mL this AM, vancomycin 1000mg x1 ordered for today, continue to dose per levels at this time. * Random level ordered for: 10/10/24 Clindamycin * 600 mg IV every 8 hours Pharmacy will continue to follow and will adjust dose/frequency as necessary. Thank you. Pharmacy has transitioned to AUC monitoring for vancomycin. AUC/MIKE is the preferred PK/PD target and is associated with decreased risk of nephrotoxicity compared to traditional trough targets.
[2024-10-09] MEDS: CALCIUM 600MG + VIT D 400 IU TAB PO SCH (08:43)
[2024-10-09] MEDS: lisinopril 40 MG TAB PO SCH (08:43)
[2024-10-09] MEDS: amLODIPine BESYLATE 5 MG TAB PO SCH (08:44)
[2024-10-09] MEDS ORDERED: VANCOMYCIN 750 MG in SODIUM CHLORIDE 0.9% 250 ML IV SCH (09:00)
[2024-10-09] MEDS: VANCOMYCIN HCL 1,000 MG/270 ML BAG IV ONE (09:51)
[2024-10-09 11:24] LABS: Hematocrit (blood only) 28.5 % (37.0-47.0); Mean Corpuscular Hemoglobin 28.5 pg (25.0-34.0); Mean Corpuscular Hgb Conc 31.6 g/dL (32.0-36.0); Mean Corpuscular Volume 90.2 fL (80.0-100.0); Mean Platelet Volume 9.8 fL (9.4-12.4); Platelet Count 350 K/uL (130-400); RDW Coefficient of Variation 14.7 % (11.5-14.5); RDW Standard Deviation 49.1 fL (36.4-46.3); Red Blood Count 3.16 M/uL (4.20-5.40); White Blood Count 7.67 K/ul (4.8-10.8)
[2024-10-09 11:32] LABS: Calcium 8.1 mg/dl (8.6-10.3); Potassium 4.8 mmol/L (3.5-5.1)
[2024-10-09 11:37] LABS: BUN Creatinine Ratio 20.2 (10-20)
--- NOTE | 2024-10-09 14:13 | Hospitalist Progress Note ---
Date of Service October 09, 2024 Assessment & Plan (1) Postoperative wound infection: (2) Essential hypertension: (3) Type 2 diabetes mellitus: (4) COPD (chronic obstructive pulmonary disease): Plan 84-year-old female with past medical history of pseudoaneurysm of femoral artery, peripheral arterial disease, hypertension, neuropathy, anxiety, hypothyroidism, hypercholesterolemia, COPD, CKD. She had a right groin pseudoaneurysm repair on 10/01/[address] Glover. She was discharged home on 10/05 with a wound vac. She presented to [facility] ED on 10/06 due to uncontrolled pain and increased drainage from her wound VAC. Imaging at [facility] showed a fluid collection, she was instructed to follow-up with her vascular surgeon and was given an increase in her oral pain medication. On 10/07, she was instructed to remove the wound VAC by on-call provider at vascular surgery's office. She presented to [facility] ED on 10/08 due to uncontrolled postoperative pain and continued drainage despite wound vac removal. #Postoperative wound infection CT scan reveals a 5 x 6 x 4 cm fluid collection that may simply represent a postoperative hematoma She has been seen by general surgery and no intervention was recommended Vascular surgery consulted and feels this is expected postop hematoma. Keep area dry as possible No leukocytosis, lactate WNL, afebrile - but has had improvement in pain and appearance of postop site Continue IV clindamycin and vancomycin Pain regimen with Tylenol, oxycodone 5 mg q6h prn moderate pain, Dilaudid 0.5 mg q4h prn mod-severe pain, Dilaudid 1 mg q4h prn severe pain #Hypertension Currently stable. Continue current medical management #Type 2 diabetes mellitus ADA diet. Sliding scale coverage for now #COPD Stable. DuoNebs as needed Dispo: Continued inpatient stay for IV antibiotics and pain control Reviewed outpatient reports Updated daughter at bedside Ordered Ativan Adjusted pain regimen Admission and Anticipated Discharge Date Admission Date: October 08, 2024 Subjective Patient seen and evaluated in bedside chair with her daughter present. She was very anxious and tearful throughout our conversation. Most of her anxiety seems to stem from being back in the hospital and feeling uncertain regarding the plan. She reports her pain is better controlled today - she states yesterday her pain was 20/10 and today is 7/10. She reports that she walked in the hallway earlier and that made her feel better. Emotional support provided and questions answered to the best of my ability. Waiting for recommendations from Dr. Glover. She also notes that the Ativan she received last night significantly helped her anxiety and her sleep. Discussed giving a low dose of Ativan now and again at bedtime. No additional complaints or concerns at this time. Physical Exam Physical Exam: General: No acute distress, nondiaphoretic, well-developed, well-nourished. Very anxious and tearful. Skin: Right inguinal incision with erythema, induration, and tender to palpation. Some serosanguineous drainage noted on dressing. Jasper noted on incision line. Cardiac: Regular rate and rhythm without murmurs gallops or rubs. Pulm: Clear to auscultation bilaterally without wheezes, rales or rhonchi. Normal respiratory effort. 96% on room air. Abdominal: Soft, nontender, nondistended. Bowel sounds present. Neuro: A&O x3. Periods of difficulty finding her words (baseline). Chronic bilateral LE neuropathy. Weak R pedal pulse but warm RLE and sensation intact. Results & Data Results & Data Vital Signs (Past 12 Hours) Vital Signs Temp Pulse Resp BP Pulse Ox O2 Del Method 10/09/24 14:08 97.9 F 75 16 118/62 96 Room Air 10/09/24 07:40 Room Air 10/09/24 07:20 97.9 F 78 16 116/68 96 Room Air Laboratory Results Reviewed CBC Reviewed BMP Reviewed UA Diagnostic Findings Reviewed A/P CTA Reviewed lower extremity CTA PG Care Time/CCT Total # of Minutes Spent Total Time Spent with Patient: Total time spent is greater than 50% in coordination of care (as documented) at patient's floor/unit and/or counseling patient: Coding Level of Care Code 06750 SUB INP/OBS CARE 3/50MIN Diagnoses Postoperative wound infection T81.49XA Essential hypertension I10 Type 2 diabetes mellitus E11.9 COPD (chronic obstructive pulmonary disease) J44.9
[2024-10-09] MEDS: LORazepam 0.5 MG TAB PO STA (14:19)
--- NOTE | 2024-10-09 16:36 | Consultation ---
Date of Consultation October 09, 2024 Assessment & Plan (1) Pseudoaneurysm of right femoral artery: Pt is approx 1 week s/p R groin pseudoaneurysm repair. Now with expected post op hematoma, moderate serous drainage, mild periwound erythema. No leukocytosis, hypotension, elevated lactate, or fever. Discussed with pt that the area does need to be kept as dry as possible, this will be difficult with her large pannus and additional swelling from hematoma. Recommended placing dry grauze vs abd pads to absorb drainage and change frequently. Abx per medical team, will continue to follow post op. History of Present Illness Reason for Consultation: s/p R groin pseudoaneurysm Attending Physician: Buck Alejo History of Present Illness 84 yo f with hx of COPD, DMII, HTN, hypothyroidism, hypercholesterolemia, admitted with R groin incisional pain, seen in consultation today for evaluation. Pt is 1 week s/p R groin pseudoaneurysm repair by Dr Glover. Pseudoaneurysm occurred after an angiogram performed at [place] by Dr Rodriguez. Pt was d/c home 5 days ago, and states she was doing ok until yesterday when she developed severe pain in R groin incision. Pt states is very concerned about the swelling and pain in incision. Does not understand why this is happening. Admits fatigue. Denies TOMPKINS, fever, chest pain, SOB, N/V, rest pain, claudication, other complaints. CT imaging demonstrates hematoma and local inflammation R groin incision. Allergies Allergy/AdvReac Type Severity Reaction Status Date / Time Penicillins Allergy Intermediate hives Verified 10/08/24 08:41 Sulfa (Sulfonamide Allergy Intermediate hives Verified 10/08/24 08:41 Antibiotics) roflumilast [From Dalires] AdvReac Mild upset Verified 10/08/24 08:41 stomach Home Medications Medication Instructions Recorded Confirmed Type Medical Marijuana 1 dose inhalation HS PRN Sleep 09/28/24 10/08/24 History Mood Booster 200 mg PO HS 09/28/24 10/08/24 History amlodipine 5 mg tablet 5 mg PO QAM 09/28/24 10/08/24 History atorvastatin 40 mg tablet (Lipitor) 40 mg PO HS 09/28/24 10/08/24 History calcium 600 mg (as 1 tab PO QAM 09/28/24 10/08/24 History carbonate)-vitamin D3 5 mcg (200 unit) tablet clopidogrel 75 mg tablet (Plavix) 75 mg PO QAM 09/28/24 10/08/24 History cyclosporine 0.05 % eye drops 1 drp ophthalmic (eye) Q12H 09/28/24 10/08/24 History febuxostat 40 mg tablet (Uloric) 40 mg PO QAM 09/28/24 10/08/24 History fluticasone furoate 100 1 inh inhalation DAILY 09/28/24 10/08/24 History mcg/actuation blister powder for inhalation (Arnuity Ellipta) gabapentin 300 mg capsule 300 mg PO BID 09/28/24 10/08/24 History hydrochlorothiazide 25 mg tablet 25 mg PO QAM 09/28/24 10/08/24 History levothyroxine 50 mcg tablet 50 mcg PO QAM 09/28/24 10/08/24 History (Synthroid) lisinopril 40 mg tablet 40 mg PO QAM 09/28/24 10/08/24 History melatonin 5 mg tablet 5 mg PO HS 09/28/24 10/08/24 History rivaroxaban 2.5 mg tablet (Xarelto) 2.5 mg PO BID 09/28/24 10/08/24 History trazodone 100 mg tablet 200 mg PO HS 09/28/24 10/08/24 History vibegron 75 mg tablet (Gemtesa) 75 mg PO QAM 09/28/24 10/08/24 History oxycodone-acetaminophen 5 mg-325 1 tab PO Q4H PRN pain #30 tabs 10/05/24 10/08/24 Rx mg tablet (Percocet) oxycodone 10 mg tablet 10 mg PO QID PRN Pain 10/08/24 10/08/24 History Patient History Medical History Hearing deficit [place] Dry eye syndrome Medical marijuana use Insomnia History of chronic lymphocytic leukemia no treatment Hx of gout Arthritis Mixed stress and urge urinary incontinence GERD (gastroesophageal reflux disease) Diabetes mellitus, type 2 diet controlled (no meds "my choice") Hypothyroidism PVD (peripheral vascular disease) Anemia PTSD (post-traumatic stress disorder) Panic attacks follows with pysch>every week History of anxiety Peripheral neuropathy Brain aneurysm 37 years ago>cont. to have aphasia (clamped at [facility]) Cardiac murmur Dr. Diaz cards Hypertension Hyperlipidemia Chronic obstructive pulmonary disease Asthma "only has daily inhaler">controlled Surgical History H/O foot surgery needle removed from foot History of ankle surgery right/left History of total knee replacement right/left H/O breast biopsy benign History of amputation right first 3 toes History of esophagogastroduodenoscopy (EGD) History of colonoscopy History of hysterectomy History of cholecystectomy History of appendectomy H/O vascular surgery 4 total stents/1 balloon in legs (done by Dr. Quinn Diaz). last done 08/29/24 at [facility] History of tooth extraction History of tonsillectomy History of cataract surgery right/left Family History Other No family history of adverse response to anesthesia Social History Smoking Status: Former smoker Tobacco Type: Cigarettes Second Hand Exposure: No; Do You Dip or Chew Tobacco: No; Hx Alcohol Use: No Hx Substance Use: Yes Last Used Substance Other:: "last night" Substance Use Type Other:: medical marijuana Preferred Language: Spanish Communication Ability: Effective Sustainable Development Policy Analyst Required: No Beliefs That Will Affect Care: None Current Living Situation: Alone Current Living Situation Comment: home with cat Feels Safe at Home: Yes Assistive Devices: Denture - Upper, Denture - Lower, Glasses, Hearing Aid - Bilateral and Walker Review of Systems Review of Systems: All systems reviewed & are unremarkable except as noted in HPI & below Physical Exam Constitutional: WD/WN, vitals as above + acute distress (very anxious and angry) and healthy appearing Respiratory: normal respiratory effort, lungs clear to auscultation Auscultation: + diminished lung sounds Cardiovascular: Rate/Rhythm: regular rate and regular rhythm Vessels: posterior tibial pulses present, dorsalis pedis pulses present and radial pulses present; + abnormal peripheral pulses Extremities: normal capillary refill Gastrointestinal (Abdomen): Inspection/Auscultation: abdomen normal to inspection and normal bowel sounds Percussion/Palpation: + abdomen tender (over R sided incision) and abdomen soft Musculoskeletal: no cyanosis or clubbing, extremities motor strength 5/5 Skin: + incision (R groin/pelvis migel, mode rate serous drainage, mild periwound erythema) mild maceration of incision line. Neurologic: moves all extremities and awake; no focal motor deficits and not confused Psychiatric: Orientation: alert and oriented x 3 Affect: + anxious affect and + angry affect Results & Data Vital Signs (Past 12 Hours) Vital Signs Temp Pulse Resp BP Pulse Ox O2 Del Method 10/09/24 14:08 36.6 C 75 16 118/62 96 Room Air 10/09/24 07:40 Room Air 10/09/24 07:20 36.6 C 78 16 116/68 96 Room Air
[2024-10-09] MEDS ORDERED: HYDROmorphone INJ 0.5 MG/0.5 ML SYR IV PRN ×2 (17:10→17:14)
[2024-10-09] MEDS: LORazepam 0.5 MG TAB PO ONE (20:52)
[2024-10-09] MEDS: HYDROmorphone INJ 0.5 MG/0.5 ML SYR IV PRN (21:47)
[2024-10-10] MEDS: oxyCODONE HCL IR 5 MG TAB (IMMEDIATE RELEASE) PO PRN (05:37)
[2024-10-10 05:50] LABS: Hematocrit (blood only) 25.5 % (37.0-47.0); Hemoglobin 8.2 g/dl (12.0-16.0); Mean Corpuscular Hemoglobin 28.8 pg (25.0-34.0); Mean Corpuscular Hgb Conc 32.2 g/dL (32.0-36.0); Mean Corpuscular Volume 89.5 fL (80.0-100.0); Mean Platelet Volume 9.6 fL (9.4-12.4); Platelet Count 333 K/uL (130-400); RDW Coefficient of Variation 14.6 % (11.5-14.5); RDW Standard Deviation 47.8 fL (36.4-46.3); Red Blood Count 2.85 M/uL (4.20-5.40); White Blood Count 7.13 K/ul (4.8-10.8)
[2024-10-10 06:06] LABS: BUN Creatinine Ratio 16.8 (10-20); Calcium 8.1 mg/dl (8.6-10.3); Creatinine Clr Calc Pharmacy 21.9 ml/min; Potassium 4.8 mmol/L (3.5-5.1)
[2024-10-10] MEDS: VANCOMYCIN HCL 1,000 MG/270 ML BAG IV ONE (08:11)
--- NOTE | 2024-10-10 09:27 | Pharmacy Report ---
Pharmacy PK ABX Note - Date of Service October 10, 2024 - Assessment and Plan Assessment 10/10: Reviewed vancomycin level, will dose per levels again today as [employer] is predicting [id number] therapeutic, but AUC at steady state is supratherapeutic on scheduled regimens. Discussed duration (ordered with 48 hour stop) with Donya Cason, PAC, will continue for now until she can discuss further with vascular. 10/09: Reviewed vancomycin level, will continue to dose per levels for now since [id number] predicting subtherapeutic. Based on serum creatine changes, may be able to schedule dosing after 48 hours or steady state arrival. Blood cultures pending. 10/08: 84 year old F receiving Vancomycin and Clindamycin for empiric treatment of skin and soft tissue infection. * Day #1 of antimicrobial therapy. Underwent a right groin pseudoaneurysm repair with Dr. Glover on 10/01/24. * Received Vancomycin, Zosyn, and Clindamycin in the ED. Vancomycin and Clindamycin being continued. Blood cultures pending. * CT of groin showed a fluid collection, concern for necrotizing fasciitis. Frank hogan consulted and feel this is less likely. Awaiting vascular surgery input. * SCr is 1.73 mg/dL, above baseline of 1.40 mg/dL, likely NICHOLE. Will order an early level with expectation that NICHOLE resolves in the coming days. Plan Vancomycin * Based on level 13.3 mcg/mL this AM, vancomycin 1000mg x1 ordered for today, continue to dose per levels at this time. * Random level ordered for: 10/11/24 Clindamycin * 600 mg IV every 8 hours Pharmacy will continue to follow and will adjust dose/frequency as necessary. Thank you. Pharmacy has transitioned to AUC monitoring for vancomycin. AUC/MIKE is the preferred PK/PD target and is associated with decreased risk of nephrotoxicity compared to traditional trough targets.
--- NOTE | 2024-10-10 12:33 | Infectious Disease Consult ---
Date of Consultation October 10, 2024 Assessment & Plan (1) Surgical wound infection: (2) Pseudoaneurysm of right femoral artery: (3) S/P vascular surgery: (4) Type 2 diabetes mellitus: Plan 84yo F with h/o T2DM, COPD, JANIA, gout, bl TKA, bl ankle repairs with hardware, right femoral pseudoaneurysm s/p repair 10/01 and discharged on 10/05 with wound vac who presented on 10/08 with right inguinal area pain since 10/06. Noted increased bloody drainage. Wound vac removed per advise of provider, but given ongoing pain she came to the ED. On admission, she was afebrile, vss. Initial labs with WBC 10.63, Cr 1.73. LFT wnl. Lactate 0.5. PCT 0.11. UA negative. CTAP w IV showed irregular walled hypodense necrotic collection with few internal air foci in the right inguinal region with multiple right inguinal LAD, diffuse surrounding fat stranding, likely suggestive of necrotizing fasciitis/ peripherally enhancing lesion of 1.9 x 2.1 cm in liver, likely hemangioma, bl perinephric stranding suggesting NICHOLE. CTA RLE with no significant stenosis. She was started on broad abx. Seen by surgery who did not feel she had necrotizing infection. Seen by vascular who felt collection was c/w hematoma. ID consulted 10/10. Surgical site does have some surrounding pink erythema with swelling. Surgery does not feel there is a deeper infection. She was MRSA negative last week, but Ill resend MRSA screen. # Right groin surgical site infection # R femoral pseudoaneurysm s/p repair 10/01 # h/o T2DM - Cammy ordered MRSA screen - Cammy stopped clindamycin - will continue on vancomycin pharmacy dosed protocol - if MRSA negative, then change abx to cefazolin Will continue to follow. If questions or concerns, contact via [place] or Infectious Disease Call Center . Rimma Reddy MD [facility], Division of Infectious Diseases Consultation Information Consultation was provided via telemedicine using two-way real-time interactive telecommunication between the patient and the telemedicine provider. For the duration of the visit, the provider was performing the assessment from a different facility than the patient. This includesuse of bluetooth stethoscope forauscultationperformed by the telepresenter that the telemedicine provider can hear if described in the physical exam. [employer] Operator contact information: Please call [facility] Call Center [phone]. (Phone Number For Physician Use Only) After establishing a telemedicine visit, patient was: Patient was verified with two unique identifiers, Patient/authorized rep acknowledged consent and unders tanding and Gave permission to continue telehealth session Time Spent with Patient: Initial => 75 min History of Present Illness Reason for Consultation: postop R inguinal wound infection Attending Physician: Buck Alejo History of Present Illness 84yo F with h/o T2DM, COPD, JANIA, gout, bl TKA, bl ankle repairs with hardware, right femoral pseudoaneurysm s/p repair 10/01 and discharged on 10/05 with wound vac who presented on 10/08 with right inguinal area pain since 10/06. At home, daughter had noted that the wound vac had increased bloody drainage. They were seen at an outside ED on 10/06 and noted to have a fluid collection on imaging, given analgesics and advised for outpatient follow up. Due to increased pain and drainage from surgical site, she was instructed to remove the wound vac by oncall provider, but given ongoing pain she came to the ED. On admission, she was afebrile, vss. Initial labs with WBC 10.63, Cr 1.73. LFT wnl. Lactate 0.5. PCT 0.11. UA negative. CTAP w IV showed irregular walled hypodense necrotic collection with few internal air foci in the right inguinal region with multiple right inguinal LAD, diffuse surrounding fat stranding, likely suggestive of necrotizing fasciitis/ peripherally enhancing lesion of 1.9 x 2.1 cm in liver, likely hemangioma, bl perinephric stranding suggesting NICHOLE. CTA RLE with no significant stenosis. She was started on broad abx. Seen by surgery who did not feel she had necrotizing infection. Seen by vascular who felt collection was c/w hematoma. ID consulted 10/10. On evaluation, patient reports not feeling well. She says she has had pain in her right groin and leg since her surgery. She denies having had any fevers. No abdominal pain, vomiting, diarrhea, shortness of breath. Allergies Allergy/AdvReac Type Severity Reaction Status Date / Time Penicillins Allergy Intermediate hives Verified 10/08/24 08:41 Sulfa (Sulfonamide Allergy Intermediate hives Verified 10/08/24 08:41 Antibiotics) roflumilast [From [facility]] AdvReac Mild upset Verified 10/08/24 08:41 stomach Home Medications Medication Instructions Recorded Confirmed Type Medical Marijuana 1 dose inhalation HS PRN Sleep 09/28/24 10/08/24 History Mood Booster 200 mg PO HS 09/28/24 10/08/24 History amlodipine 5 mg tablet 5 mg PO QAM 09/28/24 10/08/24 History atorvastatin 40 mg tablet (Lipitor) 40 mg PO HS 09/28/24 10/08/24 History calcium 600 mg (as 1 tab PO QAM 09/28/24 10/08/24 History carbonate)-vitamin D3 5 mcg (200 unit) tablet clopidogrel 75 mg tablet (Plavix) 75 mg PO QAM 09/28/24 10/08/24 History cyclosporine 0.05 % eye drops 1 drp ophthalmic (eye) Q12H 09/28/24 10/08/24 History febuxostat 40 mg tablet (Uloric) 40 mg PO QAM 09/28/24 10/08/24 History fluticasone furoate 100 1 inh inhalation DAILY 09/28/24 10/08/24 History mcg/actuation blister powder for inhalation (Arnuity Ellipta) gabapentin 300 mg capsule 300 mg PO BID 09/28/24 10/08/24 History hydrochlorothiazide 25 mg tablet 25 mg PO QAM 09/28/24 10/08/24 History levothyroxine 50 mcg tablet 50 mcg PO QAM 09/28/24 10/08/24 History (Synthroid) lisinopril 40 mg tablet 40 mg PO QAM 09/28/24 10/08/24 History melatonin 5 mg tablet 5 mg PO HS 09/28/24 10/08/24 History rivaroxaban 2.5 mg tablet (Xarelto) 2.5 mg PO BID 09/28/24 10/08/24 History trazodone 100 mg tablet 200 mg PO HS 09/28/24 10/08/24 History vibegron 75 mg tablet (Gemtesa) 75 mg PO QAM 09/28/24 10/08/24 History oxycodone-acetaminophen 5 mg-325 1 tab PO Q4H PRN pain #30 tabs 10/05/24 10/08/24 Rx mg tablet (Percocet) oxycodone 10 mg tablet 10 mg PO QID PRN Pain 10/08/24 10/08/24 History Patient History Medical History Hearing deficit [place] Dry eye syndrome Medical marijuana use Insomnia History of chronic lymphocytic leukemia no treatment Hx of gout Arthritis Mixed stress and urge urinary incontinence GERD (gastroesophageal reflux disease) Diabetes mellitus, type 2 diet controlled (no meds "my choice") Hypothyroidism PVD (peripheral vascular disease) Anemia PTSD (post-traumatic stress disorder) Panic attacks follows with pysch>every week History of anxiety Peripheral neuropathy Brain aneurysm 37 years ago>cont. to have aphasia (clamped at [facility]) Cardiac murmur Dr. Diaz cards Hypertension Hyperlipidemia Chronic obstructive pulmonary disease Asthma "only has daily inhaler">controlled Surgical History H/O foot surgery needle removed from foot History of ankle surgery right/left History of total knee replacement right/left H/O breast biopsy benign History of amputation right first 3 toes History of esophagogastroduodenoscopy (EGD) History of colonoscopy History of hysterectomy History of cholecystectomy History of appendectomy H/O vascular surgery 4 total stents/1 balloon in legs (done by Dr. Quinn Diaz). last done 08/29/24 at [facility] History of tooth extraction History of tonsillectomy History of cataract surgery right/left Family History Other No family history of adverse response to anesthesia Social History Smoking Status: Former smoker Tobacco Type: Cigarettes Second Hand Exposure: No; Do You Dip or Chew Tobacco: No; Hx Alcohol Use: No Hx Substance Use: Yes Last Used Substance Other:: "last night" Substance Use Type Other:: medical marijuana Preferred Language: Georgian Communication Ability: Effective Shoulder Sawyer Required: No Beliefs That Will Affect Care: None Current Living Situation: Alone Current Living Situation Comment: home with cat Feels Safe at Home: Yes Assistive Devices: Denture - Upper, Denture - Lower, Glasses, Hearing Aid - Bilateral and Walker Review of System 10-point review of systems reviewed and are negative except for as above. Physical Exam Physical Exam: General: Awake, alert, no acute distress HEENT: NC/AT, EOMI, mmm Neck: supple Lungs: respirations non-labored Heart: nl peripheral perfusion Abdomen: soft, NT/ND Ext: right groin with surgical site/migel with surrounding erythema and induration, tenderness over surgical site Neuro: moving all extremities Results & Data Vital Signs (Past 12 Hours) Vital Signs Temp Pulse Resp BP Pulse Ox O2 Del Method 10/10/24 08:24 36.8 C 69 16 112/64 96 Room Air Laboratory Results Labs reviewed. Diagnostic Findings Imaging reviewed.
--- NOTE | 2024-10-10 15:27 | Surgery Progress Note ---
Date of Service October 10, 2024 Assessment & Plan (1) Pseudoaneurysm of right femoral artery: Plan: Pt is approx 1 week s/p R groin pseudoaneurysm repair. Now with expected post op hematoma, remains stable without systemic sx. Discussed with pt that the area does need to be kept as dry as possible, this will be difficult with her large pannus and additional swelling from hematoma. Recommended placing dry grauze vs abd pads to absorb drainage and change frequently. Abx per medical team, will continue to follow post op. Admission and Anticipated Discharge Date Admission Date: October 08, 2024 Subjective Pt is approx 1 wk s/p R groin pseudoaneurysm repair, seen in f/u today. Pt states pain improved and she is feeling less anxious since a visit from her daughter. No new complaints. Review of Systems Review of Systems: All systems reviewed & are unremarkable except as noted in HPI & below Physical Exam Constitutional: WD/WN, vitals as above healthy appearing; not in distress Respiratory: normal respiratory effort, lungs clear to auscultation Auscultation: + diminished lung sounds Cardiovascular: Rate/Rhythm: regular rate and regular rhythm Vessels: posterior tibial pulses present, dorsalis pedis pulses present and radial pulses present; + abnormal peripheral pulses Extremities: normal capillary refill Gastrointestinal (Abdomen): Inspection/Auscultation: abdomen normal to inspection and normal bowel sounds Percussion/Palpation: + abdomen tender (over R sided incision) and abdomen soft Musculoskeletal: no cyanosis or clubbing, extremities motor strength 5/5 Skin: + incision (R groin/pelvis migel, mode rate serous drainage, mild periwound erythema) Neurologic: moves all extremities and awake; no focal motor deficits and not confused Psychiatric: Orientation: alert and oriented x 3 Affect: + anxious affect and + angry affect Results & Data Vital Signs (Past 12 Hours) Vital Signs Temp Pulse Resp BP BP Pulse Ox O2 Del Method 10/10/24 12:22 36.8 C 75 18 132/68 98 Room Air 10/10/24 08:24 36.8 C 69 16 112/64 96 Room Air
[2024-10-10] MEDS ORDERED: ceFAZolin 2000MG 2,000 MG/15 ML SYR IV SCH (16:00)
[2024-10-10] MEDS: ceFAZolin 1000MG 1,000 MG/7.5 ML SYR IV SCH (16:51)
--- NOTE | 2024-10-10 17:05 | Hospitalist Progress Note ---
Date of Service October 10, 2024 Assessment & Plan (1) Postoperative wound infection: (2) Essential hypertension: (3) Type 2 diabetes mellitus: (4) COPD (chronic obstructive pulmonary disease): Plan 84-year-old female with past medical history of pseudoaneurysm of femoral artery, peripheral arterial disease, hypertension, neuropathy, anxiety, hypothyroidism, hypercholesterolemia, COPD, CKD. She had a right groin pseudoaneurysm repair on 10/01/[address] Glover. She was discharged home on 10/05 with a wound vac. She presented to [facility] ED on 10/06 due to uncontrolled pain and increased drainage from her wound VAC. Imaging at [facility] showed a fluid collection, she was instructed to follow-up with her vascular surgeon and was given an increase in her oral pain medication. On 10/07, she was instructed to remove the wound VAC by on-call provider at vascular surgery's office. She presented to [facility] ED on 10/08 due to uncontrolled postoperative pain and continued drainage despite wound vac removal. #Postoperative wound infection/Cellulitis of right groin CT scan reveals a 5 x 6 x 4 cm fluid collection - Vascular surgery consulted and feels this is expected postop hematoma. Recommends to keep area dry as possible ID consulted - IV Clindamycin and Vancomycin discontinued. Started IV Cefazolin 1 g Q12H Pain regimen with Tylenol, oxycodone 5 mg q6h prn moderate pain, Dilaudid 0.5 mg q4h prn mod-severe pain, Dilaudid 1 mg q4h prn severe pain #Hypertension Currently stable. Continue current medical management #Type 2 diabetes mellitus ADA diet. Sliding scale coverage for now #COPD Stable. DuoNebs as needed Dispo: Continued inpatient stay for IV antibiotics and pain control Updated daughter at bedside Consulted ID, antibiotics adjusted Admission and Anticipated Discharge Date Admission Date: October 08, 2024 Subjective Patient seen and evaluated at bedside with her daughter present. She reports better pain control today. She also notes she is less anxious today since a more definitive plan has been established. She also notes she had good sleep again last night, which she attributed to the low dose Ativan that calmed her anxiety. We discussed the recommendations from the ID doctor. No additional complaints or concerns at this time. Physical Exam Physical Exam: General: No acute distress, nondiaphoretic, well-developed, well-nourished. Skin: Right inguinal incision with IMPROVING erythema and induration. Remains tender to palpation. Some serosanguineous drainage noted on dressing. [place] noted on incision line. Cardiac: Regular rate and rhythm without murmurs gallops or rubs. Pulm: Clear to auscultation bilaterally without wheezes, rales or rhonchi. Normal respiratory effort. 96% on room air. Abdominal: Soft, nontender, nondistended. Bowel sounds present. Neuro: A&O x3. Periods of difficulty finding her words (baseline). Chronic bilateral LE neuropathy. Weak R pedal pulse but warm RLE and sensation intact. Results & Data Results & Data Vital Signs (Past 12 Hours) Vital Signs Temp Pulse Resp BP BP Pulse Ox O2 Del Method 10/10/24 16:17 98.2 F 68 17 136/74 96 Room Air 10/10/24 12:22 98.2 F 75 18 132/68 98 Room Air 10/10/24 08:24 98.2 F 69 16 112/64 96 Room Air Laboratory Results Reviewed CBC Reviewed BMP PG Care Time/CCT Total # of Minutes Spent Total Time Spent with Patient: Total time spent is greater than 50% in coordination of care (as documented) at patient's floor/unit and/or counseling patient: Coding Level of Care Code 32259 SUB INP/OBS CARE 3/50MIN Diagnoses Postoperative wound infection T81.49XA Essential hypertension I10 Type 2 diabetes mellitus E11.9 COPD (chronic obstructive pulmonary disease) J44.9
[2024-10-10] MEDS: LORazepam 0.5 MG TAB PO STA (21:38)
[2024-10-11] MEDS ORDERED: HYDROmorphone INJ 0.5 MG/0.5 ML SYR IV PRN (09:06)
--- NOTE | 2024-10-11 09:10 | Hospitalist Progress Note ---
Date of Service October 11, 2024 Assessment & Plan (1) Postoperative wound infection: (2) Essential hypertension: (3) Type 2 diabetes mellitus: (4) COPD (chronic obstructive pulmonary disease): Plan 84-year-old female with past medical history of pseudoaneurysm of femoral artery, peripheral arterial disease, hypertension, neuropathy, anxiety, hypothyroidism, hypercholesterolemia, COPD, CKD. She had a right groin pseudoaneurysm repair on 10/01/[address] Glover. She was discharged home on 10/05 with a wound vac. She presented to [facility] ED on 10/06 due to uncontrolled pain and increased drainage from her wound VAC. Imaging at [facility] showed a fluid collection, she was instructed to follow-up with her vascular surgeon and was given an increase in her oral pain medication. On 10/07, she was instructed to remove the wound VAC by on-call provider at vascular surgery's office. She presented to [facility] ED on 10/08 due to uncontrolled postoperative pain and continued drainage despite wound vac removal. Initially treated with IV Clindamycin and IV Vancomycin, then switched to IV Cefazolin per ID's recommendation. #Postoperative wound infection/Cellulitis of right groin CT scan reveals a 5 x 6 x 4 cm fluid collection - Vascular surgery consulted and feels this is expected postop hematoma. Recommends to keep area dry as possible ID consulted - Continue IV Cefazolin 1 g Q12H. At discharge, can transition to cephalexin 500 mg PO QID for CrCl >30 (otherwise, 500 mg TID). Duration of antibiotics for 5-7 days (day 7 is 10/14) Pain regimen downgraded - Tylenol, oxycodone 5 mg q6h prn moderate pain, o xycodone 10 mg q6h prn severe pain. Dilaudid IV has been discontinued #Anxiety Significant anxiety about being in the hospital Ativan 0.50 mg HS #Hypertension Currently stable. Continue current medical management #Type 2 diabetes mellitus ADA diet. Sliding scale coverage for now #COPD Stable. DuoNebs as needed Dispo: Continued inpatient stay for IV antibiotics and pain control Updated daughter at bedside Adjusted pain regimen Ordered Ativan Admission and Anticipated Discharge Date Admission Date: October 08, 2024 Subjective Patient seen and evaluated at bedside with daughter present. She reports that her pain is under control but is anxious and tearful today. She states that she had a "horrible night" with her care. She stated "what's the point of this if it's just going to kill me anyway" Reassurance provided that her infection is improving and she will likely be discharged home within the next 48 hours. We discussed her having a low dose of Ativan now to help with her anxiety, as well as a dose at bedtime. We further discussed adjusting her pain regimen to transition to oral medications from IV. All questions/concerns addressed. No additional complaints or concerns at this time. Physical Exam Physical Exam: General: No acute distress, nondiaphoretic, well-developed, well-nourished. Extremely anxious and tearful. Skin: Right inguinal incision with IMPROVING erythema and induration. Remains tender to palpation. Some serosanguineous drainage noted on dressing. [place] noted on incision line. Cardiac: Regular rate and rhythm without murmurs gallops or rubs. Pulm: Clear to auscultation bilaterally without wheezes, rales or rhonchi. Normal respiratory effort. 98% on room air. Abdominal: Soft, nontender, nondistended. Bowel sounds present. Neuro: A&O x3. Periods of difficulty finding her words (baseline). Chronic bilateral LE neuropathy. Weak R pedal pulse but warm RLE and sensation intact. Results & Data Results & Data Vital Signs (Past 12 Hours) Vital Signs Temp Pulse Resp BP Pulse Ox O2 Del Method 10/11/24 07:30 97.9 F 59 L 16 138/68 98 Room Air 10/10/24 21:10 97.9 F 82 18 146/67 H 93 Room Air Laboratory Results Reviewed blood cultures PG Care Time/CCT Total # of Minutes Spent Total Time Spent with Patient: Total time spent is greater than 50% in coordination of care (as documented) at patient's floor/unit and/or counseling patient: Coding Level of Care Code 51157 SUB INP/OBS CARE 3/50MIN Diagnoses Postoperative wound infection T81.49XA Essential hypertension I10 Type 2 diabetes mellitus E11.9 COPD (chronic obstructive pulmonary disease) J44.9
[2024-10-11 10:35] LABS: BUN Creatinine Ratio 14.8 (10-20); Calcium 8.3 mg/dl (8.6-10.3); Creatinine Clr Calc Pharmacy 29.8 ml/min; Potassium 4.6 mmol/L (3.5-5.1)
[2024-10-11 10:36] LABS: Hematocrit (blood only) 25.2 % (37.0-47.0); Hemoglobin 8.1 g/dl (12.0-16.0); Mean Corpuscular Hemoglobin 28.5 pg (25.0-34.0); Mean Corpuscular Hgb Conc 32.1 g/dL (32.0-36.0); Mean Corpuscular Volume 88.7 fL (80.0-100.0); Mean Platelet Volume 9.9 fL (9.4-12.4); Platelet Count 382 K/uL (130-400); RDW Coefficient of Variation 14.6 % (11.5-14.5); RDW Standard Deviation 47.3 fL (36.4-46.3); Red Blood Count 2.84 M/uL (4.20-5.40); White Blood Count 6.05 K/ul (4.8-10.8)
--- NOTE | 2024-10-11 11:36 | Infectious Disease Progress Nt ---
Date of Service October 11, 2024 Assessment & Plan (1) Surgical wound infection: (2) Pseudoaneurysm of right femoral artery: (3) S/P vascular surgery: (4) Type 2 diabetes mellitus: Plan 84yo F with h/o T2DM, COPD, JANIA, gout, bl TKA, bl ankle repairs with hardware, right femoral pseudoaneurysm s/p repair 10/01 and discharged on 10/05 with wound vac who presented on 10/08 with right inguinal area pain since 10/06. On admission, she was afebrile, vss. Initial labs with WBC 10.63, Cr 1.73. LFT wnl. Lactate 0.5. PCT 0.11. UA negative. CTAP w IV showed irregular walled hypodense necrotic collection with few internal air foci in the right inguinal region with multiple right inguinal LAD, diffuse surrounding fat stranding, likely suggestive of necrotizing fasciitis/ peripherally enhancing lesion of 1.9 x 2.1 cm in liver, likely hemangioma, bl perinephric stranding suggesting NICHOLE. CTA RLE with no significant stenosis. She was started on broad abx. Seen by surgery who did not feel she had necrotizing infection. Seen by vascular who felt collection was c/w hematoma. ID consulted 10/10. She feels well today including improvement in pain. Can complete a short course of abx for some overlying SSTI. # Right groin surgical site infection # R femoral pseudoaneurysm s/p repair 10/01 # h/o T2DM - continue cefazolin, renally adjusted - when shes ready for discharge, can change abx to cephalexin 500mg PO 4 times daily for CrCl 30 or above (based on current CrCl, will be 500mg q8h) - duration of abx 5-7 days starting from 10/08 (7d will be through 10/14) Will discontinue active follow up at this time. Please do not hesitate to reconsult the Infectious Diseases service as needed. Rimma Reddy MD [facility], Division of Infectious Diseases [facility]: [phone] Admission and Anticipated Discharge Date Admission Date: October 08, 2024 Subjective Subsequent visit was provided via telemedicine using two-way real-time interactive telecommunication between the patient and the telemedicine provider. For the duration of the visit, the provider was performing the assessment from a different facility than the patient. This includesuse of bluetooth st ethoscope forauscultationperformed by the telepresenter that the telemedicine provider can hear if described in the physical exam. Manager Port contact information: Please call [facility] Call Center . (Phone Number For Physician Use Only) After establishing a telemedicine visit, patient was: Patient was verified with two unique identifiers, Patient/authorized rep acknowledged consent and understanding and Gave permission to continue telehealth session Time Spent with Patient: Subsequent => 55 min Patient feeling well today. Pain is less. No abdominal pain or diarrhea. Physical Exam Physical Exam: General: Awake, alert, no acute distress HEENT: NC/AT, EOMI Neck: supple Lungs: respirations non-labored Heart: nl peripheral perfusion Abdomen: right lower groin area with improving erythema/pain, serosanguinous drainage Results & Data Vital Signs (Past 12 Hours) Vital Signs Temp Pulse Resp BP Pulse Ox O2 Del Method 10/11/24 07:30 36.6 C 59 L 16 138/68 98 Room Air Laboratory Results Labs reviewed.
[2024-10-11] MEDS: LORazepam 0.5 MG TAB PO STA (12:23)
--- NOTE | 2024-10-11 15:26 | Surgery Progress Note ---
Date of Service October 11, 2024 Assessment & Plan (1) Pseudoaneurysm of right femoral artery: Plan: We will continue to observe. Continue present treatment. No intervention required at this point Admission and Anticipated Discharge Date Admission Date: October 08, 2024 Subjective Patient still complains of right groin pain but does claim that is improving. Physical Exam Constitutional: WD/WN, vitals as above Skin: + incision (Serous drainage from the rig ht groin. hematoma may be slightly smaller) Psychiatric: A+Ox3, euthymic affect Results & Data Vital Signs (Past 12 Hours) Vital Signs Temp Pulse Resp BP Pulse Ox O2 Del Method 10/11/24 08:00 Room Air 10/11/24 07:30 36.6 C 59 L 16 138/68 98 Room Air
[2024-10-11] MEDS: oxyCODONE HCL IR 5 MG TAB (IMMEDIATE RELEASE) PO PRN (18:29)
[2024-10-11] MEDS: LORazepam 0.5 MG TAB PO SCH (21:00)
[2024-10-11] MEDS ORDERED: LORazepam 0.5 MG TAB PO ONE (21:00)
--- NOTE | 2024-10-12 10:38 | Surgery Progress Note ---
Date of Service October 12, 2024 Assessment & Plan (1) Pseudoaneurysm of right femoral artery: Plan: We will continue to observe. Continue present treatment. No intervention required at this point. Abx per medical team. After discussion, pt would be willing to consider rehab if necessary since she has been in hospital this long. No PT/OT notes in chart and pt states she has not had any therapy. Will see in office in 2 weeks for staple removal and wound check. Admission and Anticipated Discharge Date Admission Date: October 08, 2024 Subjective 84 yo f s/p surgical repair of R groin pseudoaneurysm, seen in f/u today. Pt states she is frustrated with being in the hospital this long, states "I'm going to here." No new complaints. Review of Systems Review of Systems: All systems reviewed & are unremarkable except as noted in HPI & below Physical Exam Constitutional: WD/WN, vitals as above healthy appearing; not in distress Respiratory: normal respiratory effort, lungs clear to auscultation Auscultation: + diminished lung sounds Cardiovascular: Rate/Rhythm: regular rate and regular rhythm Vessels: posterior tibial pulses present, dorsalis pedis pulses present and radial pulses present; + abnormal peripheral pulses Extremities: normal capillary refill Gastrointestinal (Abdomen): Inspection/Auscultation: abdomen normal to inspection and normal bowel sounds Percussion/Palpation: + abdomen tender (over R sided incision) and abdomen soft Musculoskeletal: no cyanosis or clubbing, extremities motor strength 5/5 Skin: + incision (R groin/pelvis migel, mode rate serous drainage, mild periwound erythema) Neurologic: moves all extremities and awake; no focal motor deficits and not confused Psychiatric: Orientation: alert and oriented x 3 Affect: + anxious affect and + angry affect Results & Data Vital Signs (Past 12 Hours) Vital Signs Temp Pulse BP Pulse Ox O2 Del Method 10/12/24 07:25 36.7 C 64 132/58 L 96 Room Air
[2024-10-12] MEDS: ACETAMINOPHEN 325 MG TAB PO PRN (10:55)
[2024-10-12 11:53] LABS: Hematocrit (blood only) 28.7 % (37.0-47.0); Hemoglobin 9.3 g/dl (12.0-16.0); Mean Corpuscular Hemoglobin 28.4 pg (25.0-34.0); Mean Corpuscular Hgb Conc 32.4 g/dL (32.0-36.0); Mean Corpuscular Volume 87.5 fL (80.0-100.0); Mean Platelet Volume 9.7 fL (9.4-12.4); Platelet Count 449 K/uL (130-400); RDW Coefficient of Variation 14.6 % (11.5-14.5); RDW Standard Deviation 46.7 fL (36.4-46.3); Red Blood Count 3.28 M/uL (4.20-5.40); White Blood Count 8.04 K/ul (4.8-10.8)
[2024-10-12 12:23] VITALS: PULSE 69
[2024-10-12 15:14] VITALS: RESP 19; TEMP 97.9; O2SAT 98
[2024-10-12 16:19] VITALS: BP 128/60
--- NOTE | 2024-10-12 16:20 | Discharge Summary ---
Discharge Summary Date of Service October 12, 2024 Principal Dx & Hospital Course #1 = Principal Diagnosis (1) Postoperative wound infection: (2) Essential hypertension: (3) Type 2 diabetes mellitus: (4) COPD (chronic obstructive pulmonary disease): Plan 84-year-old female with past medical history of pseudoaneurysm of femoral artery, peripheral arterial disease, hypertension, neuropathy, anxiety, hypothyroidism, hypercholesterolemia, COPD, CKD. She had a right groin pseudoaneurysm repair on 10/01/[address] Glover. She was discharged home on 10/05 with a wound vac. She presented to [facility] ED on 10/06 due to uncontrolled pain and increased drainage from her wound VAC. Imaging at [facility] showed a fluid collection, she was instructed to follow-up with her vascular surgeon and was given an increase in her oral pain medication. On 10/07, she was instructed to remove the wound VAC by on-call provider at vascular surgery's office. She presented to [facility] ED on 10/08 due to uncontrolled postopera tive pain and continued drainage despite wound vac removal. #Postoperative wound infection/Cellulitis of right groin CT scan reveals a 5 x 6 x 4 cm fluid collection - Vascular surgery consulted and feels this is expected postop hematoma. Recommends to keep area dry as possible Initially treated with IV Clindamycin and IV Vancomycin, then switched to IV Cefazolin per ID's recommendation Discharged on cephalexin 500 mg p.o. TID (for CrCl <30) through 10/14 for a total of 7 day treatment course. Provided with wound care supplies on discharge Pain regimen downgraded - Tylenol, oxycodone 5 mg q6h prn moderate pain, oxycodone 10 mg q6h prn severe pain Follow-up with vascular surgery outpatient in 2 weeks for wound check and jasper removal #Anxiety - Significant anxiety about being in the hospital Ativan 0.50 mg HS while inpatient #Hypertension - Currently stable Continue current medical management #Type 2 diabetes mellitus ADA diet. Sliding scale coverage for now #COPD - Stable Dispo: PT/OT cleared patient for return home. Discharged home with home health services 10/12. Notes For Next Care Provider Recommend follow-up with vascular surgery outpatient in 2 weeks Medication Changes From Visit Cephalexin 500 mg p.o. 3 times daily for CrCl <30 through 10/14 to complete 7 day treatment course Oxycodone 5-10 mg as needed for moderatesevere pain Admission HPI Per Admitting Provider 84-year-old white female who was recently hospitalized with right femoral pseudoaneurysm repair on October 01 and subsequently discharged on October 05 with a wound VAC. She now has evidence of infection of the right inguinal area and pain. CT scan reveals a 5 to by 6 x 4 cm fluid collection associated with the infection but she has no leukocytosis and no current fever. She has been seen by general surgery while in the ED and no intervention was recommended[facility]. She received intravenous clindamycin vancomycin and Zosyn in the ED. She will continue on clindamycin and vancomycin on admission. She is admitted for further evaluation and treatment Discharge Exam General: No acute distress, nondiaphoretic, well-developed, well-nourished. Anxious. Skin: Right inguinal incision with IMPROVING erythema and induration. Remains mildly tender to palpation. Some serosanguineous drainage noted on dressing. Jasper noted on incision line. Cardiac: Regular rate and rhythm without murmurs gallops or rubs. Pulm: Clear to auscultation bilaterally without wheezes, rales or rhonchi. Normal respiratory effort. 98% on room air. Abdominal: Soft, nontender, nondistended. Bowel sounds present. Neuro: A&O x3. Periods of difficulty finding her words (baseline). Chronic bilateral LE neuropathy. Weak R pedal pulse but warm RLE and sensation intact. Discharge Plan Discharge Items Patient Disposition: Home - Home Health Services Reason For Visit: POST-OP WOUND INFECTION Discharge Diagnosis: Right inguinal postop wound infection / hematoma Activity: Resume your previous activity Non-emergency contact: Primary Care Provider and Surgeon Call non-emergency contact if: you have any medication questions, your symptoms worsen, your pain is not controlled, you have a fever, your wound has increased redness and your wound has increased drainage Follow-up/Referrals: Everardo Glover MD [Physician] - (Follow-up as directed (2 weeks)) Berry Garcia D.O. [Primary Care Provider] - (Follow-up in 1-2 weeks) Diet: Carb Consistent or DM2 Addtl Attending Provider Instructions: Ofelia Obrien, You were admitted to the hospital due to a right groin surgical site infection. You were evaluated by the vascular surgery team who did not recommend any surgical intervention. You were evaluated by the infectious disease team who helped determine your antibiotic regimen. You were treated with IV antibiotics while in the hospital and will continue taking oral antibiotics at home to finish the course. Upon discharge from the hospital: * Take Keflex (oral antibiotic) 500 mg 3 times daily through 10/14/24. This is to treat your infection. It is important to complete this course of antibiotics even if you feel better or the infection appears resolved. Not completing the course can result in the infection returning and/or make future infections harder to treat. * Take Tylenol 650 mg every 6 hours as needed for mild pain. * Take oxycodone (narcotic pain medication) 5-10 mg every 6 hours as needed for moderate-severe pain. * Continue to use the supplies provided to keep the surgical site clean and dry. * Follow-up with your PCP in 1-2 weeks. * Follow-up with your vascular surgery team as directed in 2 weeks for a wound check and to remove your jasper. It was a pleasure taking care of you while you were in the hospital! Pending Studies at Discharge: No Stand-Alone Forms: My [facility], Smoking Cessation Medications and DC Order Prescriptions: New oxycodone 5 mg tablet 5 - 10 mg PO Q6H PRN (Reason: moderate - severe pain) Qty: 20 0RF cephalexin 500 mg tablet 500 mg PO TID Qty: 7 0RF Continued atorvastatin [Lipitor] 40 mg Tablet 40 mg PO HS clopidogrel [Plavix] 75 mg Tablet 75 mg PO QAM amlodipine 5 mg Tablet 5 mg PO QAM levothyroxine [Synthroid] 50 mcg Tablet 50 mcg PO QAM gabapentin 300 mg Capsule 300 mg PO BID hydrochlorothiazide 25 mg Tablet 25 mg PO QAM lisinopril 40 mg Tablet 40 mg PO QAM febuxostat [Uloric] 40 mg Tablet 40 mg PO QAM rivaroxaban [Xarelto] 2.5 mg Tablet 2.5 mg PO BID Gemtesa 75 mg Tablet 75 mg PO QAM Mood Booster 200 mg PO HS calcium carbonate-vitamin D3 600 mg-5 mcg (200 unit) Tablet 1 tab PO QAM melatonin 5 mg Tablet 5 mg PO HS trazodone 100 mg Tablet 200 mg PO HS Arnuity Ellipta 100 mcg/actuation Blister With Device 1 inh INHALATION DAILY Medical Marijuana 1 dose inhalation HS PRN (Reason: Sleep) cyclosporine 0.05 % Drops 1 drp OPHTHALMIC (EYE) Q12H Discontinued oxycodone-acetaminophen [Percocet] 5-325 mg Tablet 1 tab PO Q4H PRN (Reason: pain) Qty: 30 0RF oxycodone 10 mg tablet 10 mg PO QID PRN (Reason: Pain) Discharge Orders: Discharge Order (Routine); Ordered 10/12/24 Ordered By: Donya Cason Admission Data Admit Date/Time: 10/08/24 11:47 Attending Provider: Fortino Steen Admit Provider: Daniel Sneed Primary Care Provider: Berry Garcia Other Providers: Jordan Calzada; Everardo Glover; Daniel Sneed Hospital Stay Data Consultations 10/08/24 10:00 Consult General Surgery Routine Consult Vascular Surgery Routine 10/08/24 11:11 ED Decision to Admit Stat 10/10/24 11:02 Consult Infectious Diseases Routine Diagnostic Imagining Performed Abdomen/Pelvis CTA 10/08/24 07:06 EXAM: CT angio abdomen pelvis w con CLINICAL HISTORY: R groin pain TECHNIQUE: Contrast enhanced thin slice CT angiography scan of the abdominal aorta was performed with intravenous contrast. Angiographic images were processed, 3D MIP images were acquired for interpretation. Contiguous axial images were obtained. Reformatted coronal and sagittal images were also reviewed. If IV contrast material had not been administered, the likelihood of detecting abnormalities relevant to the patients condition would have been substantially decreased. CT scan was performed according to ALARA (as low as reasonable achievable). COMPARISON: No FINDINGS: Abdominal aorta is normal in course, calibre and opacification. Mild atherosclerotic disease in aorta and its branches. Origin of coeliac artery, superior mesenteric artery , bilateral main renal and lumbar arteries are normal with no hemodynamically significant ostial stenosis noted. Bilateral common, external and internal iliac arteries are normal in course, caliber and opacification. Solid abdominal organs including spleen, pancreas reveal no significant abnormality. A peripherally enhancing lesion of size 1.9 x 2.1cm is noted in segment VII of liver. Bilateral perinephric fat stranding. Bowel loops are grossly unremarkable. No evidence of ascites. [id number] Irregular walled hypodense necrotic collection with few air foci within /OBX.5.1.1OBX.5.1.2 of approximate size 5.1 x 6.8 x 4.6cm is noted in the right inguinal region with multiple enlarged right inguinal lymph nodes. Diffuse surrounding fat stranding. Surgical jasper noted over the overlying right anterolateral pelvic wall./OBX.5.1.2/OBX.5.1 IMPRESSION: OBX.5.1OBX.5.1.11. Irregular walled hypodense necrotic collection with few internal air foci in the right inguinal region with multiple right inguinal lymphadenopathy /OBX.5.1.1OBX.5.1.2 diffuse surrounding fat stranding, likely suggestive of necrotising fascitis./OBX.5.1.2/OBX.5.1 2. A peripherally enhancing lesion of size 1.9 x 2.1cm in segment VII of liver, likely a hemangioma (venous malformation). 3. Bilateral perinephric fat stranding, suggestive of acute kidney injury. Suggest- Serum creatinine correlation. 4. Mild atherosclerotic disease in aorta and its branches. No hemodynamically significant stenosis. Electronically signed by Eleazar Moore 10-08-2024 08:29 AM Lower Extremity CTA 10/08/24 07:06 EXAM: CT angio LE RT w inc wo if don CLINICAL HISTORY: R groin pain s/p recent vascular surgery TECHNIQUE: Contrast enhanced thin slice CT angiography scan of the right lower extremity was performed with intravenous contrast. Angiographic images were processed, 3D MIP images were acquired for interpretation. Contiguous axial images were obtained. Reformatted coronal and sagittal images were also reviewed. If IV contrast material had not been administered, the likelihood of detecting abnormalities relevant to the patients condition would have been substantially decreased. CT scan was performed according to ALARA (as low as reasonable achievable). COMPARISON: No FINDINGS: RIGHT LOWER LIMB: common femoral and profunda femoris arteries are normal in course, calibre and opacification with no hemodynamically significant stenosis seen. Patent vascular graft is seen along superficial femoral artery. Streak artifacts due to knee replacement prosthesis seen obscuring proximal popliteal artery. Distal Popliteal artery and tibioperoneal arteries are normal in course, calibre and opacification with no hemodynamically significant stenosis. Anterior tibial , posterior tibial and peroneal arteries are normal in course, calibre and opacification. Dorsalis pedis artery is normal in course, calibre and opacification. Good distal run off. OBX.5.1OBX.5.1.1 Irregular walled hypodense necrotic collection with few air foci within /OBX.5.1.1OBX.5.1.2 of approximate size 5.1 x 6.8 x 4.6cm is noted in the right inguinal region with multiple enlarged right inguinal lymph nodes. Diffuse surrounding fat stranding. Surgical jasper noted over the overlying right anterolateral pelvic wall./OBX.5.1.2/OBX.5.1 IMPRESSION: OBX.5.1OBX.5.1.11. Irregular walled hypodense necrotic collection with few internal air foci in the right inguinal region with multiple right inguinal lymphadenopathy /OBX.5.1.1OBX.5.1.2 diffuse surrounding fat stranding, likely suggestive of necrotising fascitis./OBX.5.1.2/OBX.5.1 2. No hemodynamically significant stenosis in right lower limb arteries. Electronically signed by Eleazar Moore 10-08-2024 08:42 AM Pending Results Patient Have Any Pending Studies at Discharge: No Discharge Instructions Given to Patient (Per Discharging Provider) Ofelia Obrien, You were admitted to the hospital due to a right groin surgical site infection. You were evaluated by the vascular surgery team who did not recommend any surgical intervention. You were evaluated by the infectious disease team who helped determine your antibiotic regimen. You were treated with IV antibiotics while in the hospital and will continue taking oral antibiotics at home to finish the course. Upon discharge from the hospital: * Take Keflex (oral antibiotic) 500 mg 3 times daily through 10/14/24. This is to treat your infection. It is important to complete this course of an tibiotics even if you feel better or the infection appears resolved. Not completing the course can result in the infection returning and/or make future infections harder to treat. * Take Tylenol 650 mg every 6 hours as needed for mild pain. * Take oxycodone (narcotic pain medication) 5-10 mg every 6 hours as needed for moderate-severe pain. * Continue to use the supplies provided to keep the surgical site clean and dry. * Follow-up with your PCP in 1-2 weeks. * Follow-up with your vascular surgery team as directed in 2 weeks for a wound check and to remove your jasper. It was a pleasure taking care of you while you were in the hospital! Total Time Total Time Spent Total Time Spent (In Minutes): Greater than 30 minutes spent completing this discharge process including direct patient care, medication reconciliation, documentation, review of labs and images, and coordination of care. Coding Level of Care Code 99227 INP/OBS DISCH >30 MIN Diagnoses Postoperative wound infection T81.49XA Essential hypertension I10 Type 2 diabetes mellitus E11.9 COPD (chronic obstructive pulmonary disease) J44.9
== END 2024-10-12 17:30 | disposition home health service (06) | DRG 863 ==
LOC: ED 06:52 → 3N 11:47 → SUATTDRO 11:47 → 3N 13:00